=== PATIENT | male | born 1960 | race Caucasian/White ===

== ENCOUNTER 2024-08-24 11:48 | Inpatient (IN) | payer MEDICARE, OTHER ==
--- NOTE | 2024-08-24 12:21 | ED ---
General Adult HPI - General Chief complaint: Altered Mental Status Stated complaint: AMS Time Seen by Provider: 08/24/24 11:59 Source: patient, EMS, RN notes reviewed Mode of arrival: EMS Limitations: altered mental status - History of Present Illness Initial comments: Patient is a 64-year-old male presenting to the emergency department with concerns with speech problems. Onset of symptoms was unclear. Patient believes that is from starting new medication. Patient reportedly started Xanax a couple of days ago. Patient admits to having left arm weakness however states that is chronic. Patient is unclear if he has left leg weakness EMS reports that is chronic. Patient denies feeling confused and does not feel he has any new weakness. - Related Data Home Medications Medication Instructions Recorded Confirmed Acetaminophen Tab [Tylenol] 650 mg PO Q4H PRN MDD 3 GRAMS 08/24/24 08/24/24 Atorvastatin [Lipitor] 80 mg PO HS@1900 08/24/24 08/24/24 Baclofen [Lioresal] 10 mg PO TID@0700,1400,1900 08/24/24 08/24/24 Bismuth Subsalicylate 524 mg PO Q30M PRN MDD 240ML 08/24/24 08/24/24 [Pepto-Bismol] Docusate [Colace] 100 mg PO DAILY PRN 08/24/24 08/24/24 Gabapentin [Neurontin] 100 mg PO TID@0700,1400,1900 08/24/24 08/24/24 HYDROcodone/APAP 5-325MG [[place] 1 tab PO Q6HR PRN 08/24/24 08/24/24 5-325] LORazepam [Ativan] 1 mg PO TID PRN 08/24/24 08/24/24 Magnesium Hydroxide [Milk of 2,400 mg PO DAILY PRN 08/24/24 08/24/24 Magnesia] Maxtussin 200mg/10ml 200 mg PO BID PRN 08/24/24 08/24/24 Omeprazole [PriLOSEC] 20 mg PO AC-SUPPER@1600 08/24/24 08/24/24 Ticagrelor [Brilinta] 90 mg PO BID@0700,1900 08/24/24 08/24/24 Tylenol Cold/Flu Severe 2 cap PO Q4H PRN MDD 10 CAPS 08/24/24 08/24/24 bisacodyL [Dulcolax] 10 mg RECTAL DAILY PRN 08/24/24 08/24/24 cloZAPine [Clozaril] 25 mg PO BID@0700,1600 08/24/24 08/24/24 polyethylene glycoL 3350 [Miralax] 17 gm PO DAILY PRN 08/24/24 08/24/24 traZODone HCL [Desyrel] 50 mg PO HS@1900 08/24/24 08/24/24 Allergies Allergy/AdvReac Type Severity Reaction Status Date / Time No Known Allergies Allergy Verified 08/24/24 13:46 Review of Systems ROS Statement: Those systems with pertinent positive or pertinent negative responses have been documented in the HPI. ROS Other: All systems not noted in ROS Statement are negative. Constitutional: Denies: fever Eyes: Denies: eye pain ENT: Denies: ear pain Respiratory: Denies: cough Cardiovascular: Denies: chest pain Gastrointestinal: Denies: abdominal pain Musculoskeletal: Denies: back pain Neurological: Reports: as per HPI Past Medical History Past Medical History: GERD/Reflux, Hyperlipidemia, Hypertension History of Any Multi-Drug Resistant Organisms: None Reported Past Surgical History: No Surgical Hx Reported Additional Past Surgical History / Comment(s): left shoulder surgery Past Anesthesia/Blood Transfusion Reactions: No Reported Reaction Past Psychological History: No Psychological Hx Reported Past Alcohol Use History: None Reported, Rare Past Drug Use History: None Reported - Past Family History Mother Family Medical History: Cancer Additional Family Medical History / Comment(s): unknown type of cancer Father Family Medical History: COPD General Exam Limitations: no limitations, altered mental status General appearance: alert, in no apparent distress Head exam: Present: normocephalic Eye exam: Present: normal appearance, PERRL, EOMI Neck exam: Present: normal inspection Respiratory exam: Present: normal lung sounds bilaterally Cardiovascular Exam: Present: regular rate, normal rhythm GI/Abdominal exam: Present: soft. Absent: tenderness Extremities exam: Present: normal inspection Neurological exam: Present: alert, oriented X3, CN II-XII intact Expanded Neurological exam: Present: protecting the airway Patient oriented to: Present: person, place, time Speech: Present: fluid speech Cranial nerves: EOM's Intact: Normal Motor strength exam: RUE: 5, LUE: 2/1, RLE: 5, LLE: 3 Eye Response: (4) open spontaneously Motor Response: (6) obeys commands Verbal Response: (5) oriented Psychiatric exam: Present: normal affect, normal mood Skin exam: Present: normal color Course Vital Signs 08/24/24 08/24/24 11:52 14:14 Temperature 98 F Pulse Rate 103 H 94 Respiratory 18 18 Rate Blood Pressure 124/81 119/84 O2 Sat by Pulse 94 L 93 L Oximetry EKG Findings - EKG Results: EKG: interpreted by WENCESLAO (Left axis.), sinus rhythm, normal QRS, normal ST/T Medical Decision Making - Medical Decision Making [facility] states patient had a stroke a few months ago. They state over the past month patient has been more confused and more anxious. Patient has had some difficulty walking over the past couple of days. Weakness left-sided is reported as chronic. Was pt. sent in by a medical professional or institution (, PA, [employer], urgent care, hospital, or long-term...) When possible be specific @ -Patient was sent from group Did you speak to anyone other than the patient for history (EMS, parent, family, police, friend...)? What history was obtained from this source @ -Patient family arrives later and provides additional history that they do have concerns with some hallucinations and increased slurred speech. Did you review nursing and triage notes (agree or disagree)? Why? @ -I reviewed and agree with nursing and triage notes Were old charts reviewed (outside hosp., previous admission, EMS record, old EKG, old radiological studies, urgent care reports/EKG's, long-term records)? Report findings @ -No old charts were reviewed Differential Diagnosis (chest pain, altered mental status, abdominal pain women, abdominal pain men, vaginal bleeding, weakness, fever, dyspnea, syncope, headache, dizziness, GI bleed, back pain, seizure, CVA, palpatations, mental health, musculoskeletal)? @ -Differential Weakness: Hypoglycemia, shock, sepsis, hyponatremia, anemia, infection, [place], ETOH, adverse medicine reaction, overdose, stroke, this is not meant to be an all-inclusive list. EKG interpreted by me (3pts min.). @ -As above X-rays interpreted by me (1pt min.). @ -Chest x-ray shows nonspecific finding CT interpreted by me (1pt min.). @ -CT brain shows old stroke. No acute process U/S interpreted by me (1pt. min.). @ -None done What testing was considered but not performed or refused? (CT, X-rays, U/S, labs)? Why? @ -None What meds were considered but not given or refused? Why? @ -None Did you discuss the management of the patient with other professionals (professionals i.e. DrJohn, PA, [facility] [employer] [facility], lab, RT, psych nurse, social insurance adviser, gas plant repairer, teacher, evp chief exploration officer, case folder)? Give summary @ -Case was discussed with Dr. Pendleton will admit covering Dr. Lipscomb Was smoking cessation discussed for >3mins.? @ -No Was critical care preformed (if so, how long)? @ -No Were there social determinants of health that impacted care today? How? (Homelessness, low income, unemployed, alcoholism, drug addiction, transportation, low edu. Level, literacy, decrease access to med. care, snf, r ehab)? @ -No Was there de-escalation of care discussed even if they declined (Discuss DNR or withdrawal of care, Hospice)? DNR status @ -No What co-morbidities impacted this encounter? (DM, HTN, Smoking, COPD, CAD, Cancer, CVA, ARF, Chemo, Hep., AIDS, mental health diagnosis, sleep apnea, morbid obesity)? @ -History of stroke Was patient admitted / discharged? Hospital course, mention meds given and route, prescriptions, significant lab abnormalities, going to OR and other pertinent info. @ -Patient presents with new onset slurred speech and some hallucinations. There does not to be apparent new weakness. It is unclear if this could be related to TIA/CVA or medication. Patient will be admitted with neurology consult. Admission orders written Undiagnosed new problem with uncertain prognosis? @ -No Drug Therapy requiring intensive monitoring for toxicity (Heparin, Nitro, Insulin, Cardizem)? @ -No Were any procedures done? @ -No Diagnosis/symptom? @ -Slurred speech Acute, or Chronic, or Acute on Chronic? @ -Acute Uncomplicated (without systemic symptoms) or Complicated (systemic symptoms)? @ -Default Side effects of treatment? @ -No Exacerbation, Progression, or Severe Exacerbation? @ -No Poses a threat to life or bodily function? How? (Chest pain, [place], [place], pneumonia, PE, COPD, DKA, ARF, appy, cholecystitis, CVA, Diverticulitis, Homicidal, Suicidal, threat to staff... and all critical care pts) @ -Threat to neurological from - Lab Data Result diagrams: 08/24/24 12:00 08/24/24 12:00 Lab Results 08/24/24 08/24/24 08/24/24 Range/Units 12:00 12:00 12:00 WBC 6.9 (3.8-10.6) k/uL RBC 5.52 (4.30-5.90) m/uL Hgb 15.9 (13.0-17.5) gm/dL Hct 49.1 (39.0-53.0) % MCV 89.0 (80.0-100.0) fL MCH 28.7 (25.0-35.0) pg MCHC 32.3 (31.0-37.0) g/dL RDW 13.9 (11.5-15.5) % Plt Count 269 (150-450) k/uL MPV 7.2 Neutrophils % 49 % Lymphocytes % 39 % Monocytes % 7 % Eosinophils % 3 % Basophils % 1 % Neutrophils # 3.4 (1.3-7.7) k/uL Lymphocytes # 2.7 (1.0-4.8) k/uL Monocytes # 0.5 (0-1.0) k/uL Eosinophils # 0.2 (0-0.7) k/uL Basophils # 0.0 (0-0.2) k/uL PT 11.1 (10.0-12.5) sec INR 1.0 (<1.2) APTT 25.1 (22.0-30.0) sec Sodium 141 (137-145) mmol/L Potassium 3.5 (3.5-5.1) mmol/L Chloride 101 (98-107) mmol/L Carbon Dioxide 28 (22-30) mmol/L Anion Gap 12 mmol/L BUN 12 (9-20) mg/dL Creatinine 0.76 (0.66-1.25) mg/dL Est GFR (CKD-EPI)AfAm >90 (>60 ml/min/1.73 sqM) Est GFR (CKD-EPI)NonAf >90 (>60 ml/min/1.73 sqM) Glucose 116 H (74-99) mg/dL Plasma Lactic Acid Juan (0.7-2.0) mmol/L Calcium 10.4 H (8.4-10.2) mg/dL Magnesium 1.9 (1.6-2.3) mg/dL Total Bilirubin 0.8 (0.2-1.3) mg/dL AST 24 (17-59) U/L ALT 29 (4-49) U/L Alkaline Phosphatase 69 (38-126) U/L Total Protein 8.0 (6.3-8.2) g/dL Albumin 4.6 (3.5-5.0) g/dL 08/24/24 Range/Units 12:00 WBC (3.8-10.6) k/uL RBC (4.30-5.90) m/uL Hgb (13.0-17.5) gm/dL Hct (39.0-53.0) % MCV (80.0-100.0) fL MCH (25.0-35.0) pg MCHC (31.0-37.0) g/dL RDW (11.5-15.5) % Plt Count (150-450) k/uL MPV Neutrophils % % Lymphocytes % % Monocytes % % Eosinophils % % Basophils % % Neutrophils # (1.3-7.7) k/uL Lymphocytes # (1.0-4.8) k/uL Monocytes # (0-1.0) k/uL Eosinophils # (0-0.7) k/uL Basophils # (0-0.2) k/uL PT (10.0-12.5) sec INR (<1.2) APTT (22.0-30.0) sec Sodium (137-145) mmol/L Potassium (3.5-5.1) mmol/L Chloride (98-107) mmol/L Carbon Dioxide (22-30) mmol/L Anion Gap mmol/L BUN (9-20) mg/dL Creatinine (0.66-1.25) mg/dL Est GFR (CKD-EPI)AfAm (>60 ml/min/1.73 sqM) Est GFR (CKD-EPI)NonAf (>60 ml/min/1.73 sqM) Glucose (74-99) mg/dL Plasma Lactic Acid Juan 1.6 (0.7-2.0) mmol/L Calcium (8.4-10.2) mg/dL Magnesium (1.6-2.3) mg/dL Total Bilirubin (0.2-1.3) mg/dL AST (17-59) U/L ALT (4-49) U/L Alkaline Phosphatase (38-126) U/L Total Protein (6.3-8.2) g/dL Albumin (3.5-5.0) g/dL Disposition Clinical Impression: Slurred speech Disposition: ADMITTED IP TO THIS HOSP Is patient prescribed a controlled substance at d/c from ED?: No Referrals: Holger Lipscomb MD [Primary Care Provider] - 1-2 days Time of Disposition: 15:36
[2024-08-24 12:26] LABS: Basophils % (A) 1 %; Eosinophils # (A) 0.2 k/uL (0-0.7); Eosinophils % (A) 3 %; HCT 49.1 % (39.0-53.0); HGB 15.9 gm/dL (13.0-17.5); Lymphocytes # (A) 2.7 k/uL (1.0-4.8); Lymphocytes % (A) 39 %; MCH 28.7 pg (25.0-35.0); MCHC 32.3 g/dL (31.0-37.0); Mean Platelet Volume 7.2; Monocytes # (A) 0.5 k/uL (0-1.0); Monocytes % (A) 7 %; Neutrophils # (A) 3.4 k/uL (1.3-7.7); Neutrophils % (A) 49 %; Platelet Count 269 k/uL (150-450); RBC 5.52 m/uL (4.30-5.90); RDW 13.9 % (11.5-15.5); WBC 6.9 k/uL (3.8-10.6)
[2024-08-24 12:38] LABS: ALT 29 U/L (4-49); AST 24 U/L (17-59); African American GFR (CKD) >90 (>60 ml/min/1.73 sqM); Albumin 4.6 g/dL (3.5-5.0); Alkaline Phosphatase 69 U/L (38-126); Anion Gap 12 mmol/L; Blood Urea Nitrogen 12 mg/dL (9-20); Calcium 10.4 mg/dL (8.4-10.2); Carbon Dioxide 28 mmol/L (22-30); Chloride 101 mmol/L (98-107); Glucose 116 mg/dL (74-99); Magnesium 1.9 mg/dL (1.6-2.3); Non-African American GFR(CKD) >90 (>60 ml/min/1.73 sqM); Potassium 3.5 mmol/L (3.5-5.1); Sodium 141 mmol/L (137-145); Total Bilirubin 0.8 mg/dL (0.2-1.3)
[2024-08-24 12:42] LABS: Partial Thromboplastin Time 25.1 sec (22.0-30.0); Prothrombin Time 11.1 sec (10.0-12.5)
--- NOTE | 2024-08-24 13:21 | CT ---
EXAMINATION TYPE: CT brain wo con CT DLP: 1192.4 mGycm, Automated exposure control for dose reduction was used. DATE OF EXAM: 08/24/2024 1:13 PM COMPARISON: CT brain 03/30/2016 CLINICAL INDICATION:Male, 64 years old with history of slurred speech, AMS HX OF STROKE TECHNIQUE: Brain: Multiple axial CT images of the brain were obtained without IV contrast. . Coronal and sagitta l reformats reviewed. FINDINGS: Brain: Extra-axial spaces: No abnormal extra-axial fluid collections. Ventricular system: Ex vacuo dilatation of the anterior horn of the left lateral ventricle and zoology technical officer ior and temporal horns of the right lateral ventricle due to adjacent encephalomalacia. Cerebral parenchyma: Cerebral atrophy. No acute intraparenchymal hemorrhage or mass effect. Encephalo malacia involving the right parietal, temporal, and occipital lobes. Remote lacunar infarct within th e left basal ganglia. The cervantes-white junction is well differentiated. Cerebellum: Unremarkable. Mass effect: No evidence of midline shift. Intracranial vasculature: unremarkable Soft tissues: Normal. Calvarium/osseous structures: No depressed skull fracture. Paranasal sinuses and mastoid air cells: Mastoid air cells are clear. Right sphenoid sinus is clear. The visualized right maxillary sinus is clear. Mild mucosal thickening of the inferior partially visu alized left maxillary sinus. Both frontal sinuses are clear. Complete opacification of the left sphen oid sinus. Mild mucosal thickening the bilateral ethmoid sinuses. Visualized orbits: Orbital contents are intact. IMPRESSION: 1. No acute intracranial process. 2. Encephalomalacia involving the right parietal, temporal, and occipital lobes from prior insult. Re mote lacunar infarct within the left basal ganglia. 3. Nonspecific white matter changes, likely secondary to chronic small vessel ischemic disease. 4. Paranasal sinus disease. [facility], , 08/24/2024 1:19 PM
--- NOTE | 2024-08-24 13:56 | XR ---
EXAMINATION TYPE: XR chest 2V DATE OF EXAM: 08/24/2024 1:20 PM CLINICAL INDICATION: Male, 64 years old with history of Weakness; [facility] COMPARISON: None TECHNIQUE: XR chest 2V Frontal view of the chest. FINDINGS: Lungs/Pleura: There is no evidence of pleural effusion, focal consolidation, or pneumothorax. Pulmonary vascularity: Unremarkable. Heart/mediastinum: Cardiomediastinal silhouette is unremarkable. Musculoskeletal: No acute osseous pathology. IMPRESSION: No acute cardiopulmonary disease/process. [facility], , 08/24/2024 1:54 PM
[2024-08-24] MEDS ORDERED: MAGNESIUM HYDROXIDE 2,400 MG/30 ML CUP PO PRN (15:39)
[2024-08-24] MEDS ORDERED: guaiFENesin SYRUP 100MG/5ML 200 MG/10 ML CUP PO PRN (15:39)
[2024-08-24] MEDS ORDERED: polyethylene glycoL 3350 17 GM POWD.PACK PO PRN (15:39)
[2024-08-24] MEDS ORDERED: bisacodyL 10 MG SUPP RECTAL PRN (15:39)
[2024-08-24] MEDS ORDERED: DOCUSATE 100 MG CAP PO PRN (15:39)
[2024-08-24] MEDS ORDERED: ACETAMINOPHEN TAB 325 MG TAB PO PRN (15:39)
[2024-08-24] MEDS ORDERED: BISMUTH SUBSALICYLATE 4,192 MG/240 ML BOTTLE PO PRN (15:39)
--- NOTE | 2024-08-24 16:45 | US ---
EXAMINATION TYPE: US carotid duplex BILAT DATE OF EXAM: 08/24/2024 COMPARISON: NONE CLINICAL INDICATION: Male, 64 years old with history of Stenosis; Stenosis per order. Patient is poor historian. Per patient's daughter- pt had stroke in February 2024. TECHNIQUE: Grayscale, color Doppler and spectral Doppler evaluation of the bilateral carotid systems and vertebral arteries.Indirect Doppler criteria was utilized. FINDINGS: EXAM MEASUREMENTS: RIGHT: Peak Systolic Velocity (PSV) cm/sec ----- Right CCA: 66.9 ----- Right ICA: Unable to show color flow after the bulb ----- Right ECA: 110.4 ICA/CCA ratio: color flow not seen in ICA after the bulb RIGHT: End Diastole cm/sec ----- Right CCA: 14.2 ----- Right ICA: Unable to show color flow ----- Right ECA: 15.9 LEFT: Peak Systolic Velocity (PSV) cm/sec ----- Left CCA: 84.2 ----- Left ICA: 114.7 ----- Left ECA: 93.1 ICA/CCA ratio: 1.4 LEFT: End Diastole cm/sec ----- Left CCA: 18.2 ----- Left ICA: 21.5 ----- Left ECA: 12.8 VERTEBRALS (direction of flow): Right Vertebral: Antegrade Left Vertebral: Antegrade Rhythm: Normal OPEN HEARTH WORKER NOTES: Unable to show color flow within the right ICA. Poor history from patient. No elevated velocities. Plaque seen within left bulb. Intimal thickening is present. IMPRESSION: 1. No flow identified within the right internal carotid artery. Obstruction and critical stenosis wit hin the differential. Criteria for Assigning % of Stenosis / Diameter reduction (Estimation based on the indirect measurements of the internal carotid artery velocities (ICA PSV). 1. Normal (no stenosis)=ICA PSV < 125 cm/s: ratio < 2.0: ICA EDV<40 cm/s. 2. Less than 50% stenosis=ICA PSV < 125 cm/s: ratio < 2.0: ICA EDV<40 cm/s. 3. 50 to 69% stenosis=ICA PSV of 125 to 230 cm/s: ration 2.0 ? 4.0: ICA EDV 40-100 cm/s. 4. Greater than 70% stenosis to near occlusion= ICA PSV > 230 cm/s: ratio > 4.0: ICA EDV > 100 cm/s. 5. Near occlusion= ICA PSV velocities may be low or undetectable: variable ratio and ICA EDV. 6. Total occlusion=unable to detect flow. [facility], Workstation: [facility], 08/24/2024 4:43 PM
[2024-08-24] MEDS: ASPIRIN 325 MG TAB PO STA (18:51)
[2024-08-24] MEDS: BACLOFEN 10 MG TAB PO SCH (18:52)
[2024-08-24] MEDS: TICAGRELOR 90 MG TAB PO SCH (18:52)
[2024-08-24] MEDS: GABAPENTIN 100 MG CAP PO SCH (18:52)
[2024-08-24] MEDS: traZODone HCL 50 MG TAB PO SCH (18:52)
[2024-08-24] MEDS: ATORVASTATIN 80 MG TAB PO SCH (18:52)
[2024-08-24] MEDS: PANTOPRAZOLE 40 MG TABLET PO SCH (18:52)
[2024-08-24] MEDS: SODIUM CHLORIDE 0.9% 1,000 ML IV SCH (18:53)
[2024-08-24] MEDS: ASPIRIN 300 MG SUPP RECTAL STA (20:06)
--- NOTE | 2024-08-24 20:32 | P.HPIM ---
History of Present Illness H&P Date: 08/24/24 Chief Complaint: Altered mentation Patient was seen in the ER. This is a 64-year-old patient follows with visiting physician Dr. Stringer. History is obtained by the daughter at the bedside. Patient had February of this year had a stroke. Was admitted to an outside hospital for about 3 weeks. Patient is putting much on the left side including arm and leg has minimal m ovement. Patient is able to feed himself. Able to communicate. Patient also has a baseline some nasolabial flattening on the left side of the face. Patient is a resident of [facility]. Patient is able to stand and needs private. At baseline. Patient not able to sleep properly hence was is given Seroquel. That was discontinued 2 days ago. Patient was put on Xanax. Patient was noticed to have altered mentation. Was mumbling his words. But patient is able to answer simple question the ER when I saw him. According to the daughter patient had looks like improved to his baseline. No other neurological deficit was seen or reported by the daughter. Review of systems: GEN.: None EYES: None HEENT: None NECK: None RESPIRATORY: None CARDIOVASCULAR: None GASTROINTESTINAL: None GENITOURINARY: None MUSCULOSKELETAL: None LYMPHATICS: None HEMATOLOGICAL: None PSYCHIATRY: Patient is able to answer simple questions NEUROLOGICAL: Chronic left-sided weakness and left-sided facial nasolabial fold flattening Physical examination: VITAL SIGNS: 98, 97, 18, 127 x 89, 91% room air GENERAL: BMI 26.4, reclining bed awake a bit tired appearing. EYES: Pupils equal. Conjunctiva irene l. HEENT: External appearance of nose and ears normal, oral cavity grossly normal. NECK: JVD not raised; masses not palpable. HEART: First and second heart sounds are normal; no edema. LUNGS: Respiratory rate normal; clear to auscultation. ABDOMEN: Soft, nontender, liver spleen not palpable, no masses palpable. PSYCH: Patient can answer some simple questions. Not able to tell the year or exactly where he is right now. l. MUSCULOSKELETAL:No Clubbing/cyanosis;muscles-grossly intact NEUROLOGICAL: Speech is a bit slow. Reported by daughter to be his baseline. Some flattening of the left nasolabial fold. Left side power 4/5 LYMPHATICS: No lymph nodes palpable in the axilla and neck] INVESTIGATIONS, reviewed in the clinical context: August 24, 2024: White count 6.9 hemoglobin 15.9 platelets 269 sodium 141 potassium 3.5 creatinine 0.76 EKG tracing personally reviewed by me-normal sinus rhythm. CT scans of brain: Encephalomalacia involving the right parietal temporal occipital lobes from prior insult. Remote lacunar infarct in the left basal ganglia. White matter changes. Chest x-ray film personally reviewed by me-cardiomegaly. Carotid Doppler no flow identified within the right internal ArteryShows Assessment plan: -Altered mentation. Could be metabolic encephalopathy could be from Xanax. Stroke in the brainstem affecting the RAAS system could cause this. Initial CT scan unremarkable. But in the ER as per the daughter patient is quite back to his baseline. Will order MRI of the brain to rule out stroke. Neurology consulted. Neurochecks. Given significant previous stroke. 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 At baseline patient is able to stand and can pivot with help. -Hyperlipidemia Lipitor 80 mg nightly -GERD Prilosec -Chronic constipation Laxatives -Chronic medical debility secondary to prior stroke Baseline only able to stand and pivot with help. -Cognitive impairment due to underlying stroke -Full code -Public guardian: Jacey Ansonbin. [facility] Past Medical History Past Medical History: GERD/Reflux, Hyperlipidemia, Hypertension History of Any Multi-Drug Resistant Organisms: None Reported Past Surgical History: No Surgical Hx Reported Additional Past Surgical History / Comment(s): left shoulder surgery Past Anesthesia/Blood Transfusion Reactions: No Reported Reaction Past Psychological History: No Psychological Hx Reported Past Alcohol Use History: None Reported, Rare Past Drug Use History: None Reported - Past Family History Mother Family Medical History: Cancer Additional Family Medical History / Comment(s): unknown type of cancer Father Family Medical History: COPD Medications and Allergies Home Medications Medication Instructions Recorded Confirmed Type Acetaminophen Tab [Tylenol] 650 mg PO Q4H PRN MDD 3 GRAMS 08/24/24 08/24/24 History Atorvastatin [Lipitor] 80 mg PO HS@1900 08/24/24 08/24/24 History Baclofen [Lioresal] 10 mg PO TID@0700,1400,1900 08/24/24 08/24/24 History Bismuth Subsalicylate 524 mg PO Q30M PRN MDD 240ML 08/24/24 08/24/24 History [Pepto-Bismol] Docusate [Colace] 100 mg PO DAILY PRN 08/24/24 08/24/24 History Gabapentin [Neurontin] 100 mg PO TID@0700,1400,1900 08/24/24 08/24/24 History HYDROcodone/APAP 5-325MG [[place] 1 tab PO Q6HR PRN 08/24/24 08/24/24 History 5-325] LORazepam [Ativan] 1 mg PO TID PRN 08/24/24 08/24/24 History Magnesium Hydroxide [Milk of 2,400 mg PO DAILY PRN 08/24/24 08/24/24 History Magnesia] Maxtussin 200mg/10ml 200 mg PO BID PRN 08/24/24 08/24/24 History Omeprazole [PriLOSEC] 20 mg PO AC-SUPPER@1600 08/24/24 08/24/24 History Ticagrelor [Brilinta] 90 mg PO BID@0700,1900 08/24/24 08/24/24 History Tylenol Cold/Flu Severe 2 cap PO Q4H PRN MDD 10 CAPS 08/24/24 08/24/24 History bisacodyL [Dulcolax] 10 mg RECTAL DAILY PRN 08/24/24 08/24/24 History cloZAPine [Clozaril] 25 mg PO BID@0700,1600 08/24/24 08/24/24 History polyethylene glycoL 3350 [Miralax] 17 gm PO DAILY PRN 08/24/24 08/24/24 History traZODone HCL [Desyrel] 50 mg PO HS@1900 08/24/24 08/24/24 History Allergies Allergy/AdvReac Type Severity Reaction Status Date / Time No Known Allergies Allergy Verified 08/24/24 13:46 Physical Exam Vitals: Vital Signs Temp Pulse Resp BP Pulse Ox 08/24/24 16:19 97 18 127/89 91 L 08/24/24 14:14 94 18 119/84 93 L 08/24/24 11:52 98 F 103 H 18 124/81 94 L Intake and Output 08/24/24 08/24/2408/24/24 06:59 14:59 22:59 Other: Weight 90.718 kg Results CBC & Chem 7: 08/24/24 12:00 08/24/24 12:00 Labs: Abnormal Lab Results - Last 24 Hours (Table) 08/24/24 Range/Units 12:00 Glucose 116 H (74-99) mg/dL Calcium 10.4 H (8.4-10.2) mg/dL
--- NOTE | 2024-08-24 22:17 | CT ---
EXAMINATION TYPE: CT angio head neck DATE OF EXAM: 08/24/2024 HISTORY: CAROTID STENOSIS COMPARISON: None CT DLP: 499.9 mGycm. Automated Exposure Control for Dose Reduction was Utilized. TECHNIQUE: CTA scan of the neck is performed with IV Contrast, patient injected with 65ml mL of Isov ue 370, axial images are obtained, coronal and sagittal reformatted images are reviewed. Three-D eliezer nstructed images are created on an independent workstation and reviewed. Source images are reviewed. FINDINGS: Carotid/Vascular Structures: There is a 4 vessel arch. Common carotid arteries bifurcate into internal and external carotid arteries without significant jason w limiting stenosis. Vertebral arteries are codominant. Vertebral arteries and left internal carotid artery are patent to the skull base. The right internal carotid artery may be occluded in its proximal portion. Small thread may extend towards the skull bas e. Right Foramen lacerum appears empty. Small amount of retrograde flow may be in the distal internal carotid artery. Cervical of [place]: Vertebral basilar system appears normal. Posterior cerebral vasculature is unrema rkable. Left Internal carotid artery bifurcates normally into A1 and M1 segments. A2 segments are normal. Clinical Engineering Manager ssover flow to the right A1 and M1 segment is evident. This contrast extends to a large right middle cerebral artery infarct region. The anterior communicating artery is patent. The right posterior communicating artery is absent. The left posterior communicating artery is absent. Other: Large right middle cerebral artery distribution infarct is evident. IMPRESSION: 1. Occlusion of the proximal right internal carotid artery. 2. Crossover flow from left to right A1 and M1 segments. NASCET criteria was used in interpretation of this exam? [facility], Workstation: [facility], 08/24/2024 10:15 PM
[2024-08-25] MEDS: ASPIRIN 81 MG PO SCH (08:30)
--- NOTE | 2024-08-25 10:52 | P.GSCN ---
History of Present Illness Consult date: 08/25/24 Reason for Consult: Right carotid occlusion Requesting physician: Jaime Pendleton History of present illness: This a pleasant 64-year-old male who was brought in by EMS yesterday for concerns for slurred speech and difficulty speaking. Patient has a recent history of stroke with residual left-sided weakness and cognitive dysfunction. States he was at [facility] and sent to [facility] for care at that time. Patient has a public guardian. States he had a stroke a few months back and he is supposed to be following with for physicians however he could not elaborate. He does report that he had right ICA occlusion. He was currently on Lipitor 80 mg daily as well as Brilinta 90 mg twice daily. Does not appear to be on aspirin. Patient has's poor historian. His thoughts seem to be on organized. Often talking about his son and daughter, and stating somebody had come to his house and made him take a test at 3 AM. Speech is fluent does seem to be able to answer questions appropriately. Is alert and oriented to self and place initially stated the year as 2023 but then asked if it was 1993. Patient is currently being evaluated for possible stroke versus metabolic encephalopathy. Apparently patient had been started on Seroquel and Xanax for difficulty sleeping at his group residence. Patient believes speech may have been secondary to the medications. He had a carotid duplex and CTA head and neck that reported right ICA occlusion and vascular surgery was consulted for the above. Review of Systems A 14 point review systems was completed all pertinent positives and negatives as stated in the HPI. Past Medical History Past Medical History: GERD/Reflux, Hyperlipidemia, Hypertension History of Any Multi-Drug Resistant Organisms: None Reported Past Surgical History: No Surgical Hx Reported Additional Past Surgical History / Comment(s): left shoulder surgery Past Anesthesia/Blood Transfusion Reactions: No Reported Reaction Past Psychological History: No Psychological Hx Reported Past Alcohol Use History: None Reported, Rare Past Drug Use History: None Reported - Past Family History Mother Family Medical History: Cancer Additional Family Medical History / Comment(s): unknown type of cancer Father Family Medical History: COPD Medications and Allergies Home Medications Medication Instructions Recorded Confirmed Type Acetaminophen Tab [Tylenol] 650 mg PO Q4H PRN MDD 3 GRAMS 08/24/24 08/24/24 History Atorvastatin [Lipitor] 80 mg PO HS@1900 08/24/24 08/24/24 History Baclofen [Lioresal] 10 mg PO TID@0700,1400,1900 08/24/24 08/24/24 History Bismuth Subsalicylate 524 mg PO Q30M PRN MDD 240ML 08/24/24 08/24/24 History [Pepto-Bismol] Docusate [Colace] 100 mg PO DAILY PRN 08/24/24 08/24/24 History Gabapentin [Neurontin] 100 mg PO TID@0700,1400,1900 08/24/24 08/24/24 History HYDROcodone/APAP 5-325MG [Dunlap 1 tab PO Q6HR PRN 08/24/24 08/24/24 History 5-325] LORazepam [Ativan] 1 mg PO TID PRN 08/24/24 08/24/24 History Magnesium Hydroxide [Milk of 2,400 mg PO DAILY PRN 08/24/24 08/24/24 History Magnesia] Maxtussin 200mg/10ml 200 mg PO BID PRN 08/24/24 08/24/24 History Omeprazole [PriLOSEC] 20 mg PO AC-SUPPER@1600 08/24/24 08/24/24 History Ticagrelor [Brilinta] 90 mg PO BID@0700,1900 08/24/24 08/24/24 History Tylenol Cold/Flu Severe 2 cap PO Q4H PRN MDD 10 CAPS 08/24/24 08/24/24 History bisacodyL [Dulcolax] 10 mg RECTAL DAILY PRN 08/24/24 08/24/24 History cloZAPine [Clozaril] 25 mg PO BID@0700,1600 08/24/24 08/24/24 History polyethylene glycoL 3350 [Miralax] 17 gm PO DAILY PRN 08/24/24 08/24/24 History traZODone HCL [Desyrel] 50 mg PO HS@1900 08/24/24 08/24/24 History Allergies Allergy/AdvReac Type Severity Reaction Status Date / Time No Known Allergies Allergy Verified 08/24/24 13:46 Surgical - Exam Vital Signs Temp Pulse Resp BP Pulse Ox 98 F 103 H 18 124/81 94 L 08/24/24 11:52 08/24/24 11:52 08/24/24 11:52 08/24/24 11:52 08/24/24 11:52 General appearance: The patient is alert, oriented, appears in no acute distress. HET: Head is normocephalic and atraumatic. Pupils are equal and reactive. Neck: Supple. No audible carotid bruit. Heart: Regular. Lungs: Equal expansion, normal respiratory effort. Abdomen: Soft, nontender, nondistended. Extremities: Normal skin color and turgor. Palpable radial and DP pulses. Neurological: Patient's speech is fluent. Answers questions appropriately, however goes off on tangent thoughts. Left upper and lower extremity weakness. Results - Labs 08/24/24 12:00 08/24/24 12:00 Abnormal Lab Results - Last 24 Hours (Table) 08/24/24 Range/Units 12:00 Glucose 116 H (74-99) mg/dL Calcium 10.4 H (8.4-10.2) mg/dL Diabetes panel 08/24/24 Range/Units 12:00 Sodium 141 (137-145) mmol/L Potassium 3.5 (3.5-5.1) mmol/L Chloride 101 (98-107) mmol/L Carbon Dioxide 28 (22-30) mmol/L BUN 12 (9-20) mg/dL Creatinine 0.76 (0.66-1.25) mg/dL Glucose 116 H (74-99) mg/dL Calcium 10.4 H (8.4-10.2) mg/dL AST 24 (17-59) U/L ALT 29 (4-49) U/L Alkaline Phosphatase 69 (38-126) U/L Total Protein 8.0 (6.3-8.2) g/dL Albumin 4.6 (3.5-5.0) g/dL Calcium panel 08/24/24 Range/Units 12:00 Calcium 10.4 H (8.4-10.2) mg/dL Albumin 4.6 (3.5-5.0) g/dL Pituitary panel 08/24/24 Range/Units 12:00 Sodium 141 (137-145) mmol/L Potassium 3.5 (3.5-5.1) mmol/L Chloride 101 (98-107) mmol/L Carbon Dioxide 28 (22-30) mmol/L BUN 12 (9-20) mg/dL Creatinine 0.76 (0.66-1.25) mg/dL Glucose 116 H (74-99) mg/dL Calcium 10.4 H (8.4-10.2) mg/dL Adrenal panel 08/24/24 Range/Units 12:00 Sodium 141 (137-145) mmol/L Potassium 3.5 (3.5-5.1) mmol/L Chloride 101 (98-107) mmol/L Carbon Dioxide 28 (22-30) mmol/L BUN 12 (9-20) mg/dL Creatinine 0.76 (0.66-1.25) mg/dL Glucose 116 H (74-99) mg/dL Calcium 10.4 H (8.4-10.2) mg/dL Total Bilirubin 0.8 (0.2-1.3) mg/dL AST 24 (17-59) U/L ALT 29 (4-49) U/L Alkaline Phosphatase 69 (38-126) U/L Total Protein 8.0 (6.3-8.2) g/dL Albumin 4.6 (3.5-5.0) g/dL - Imaging Comments: Brain CT: No acute intracranial process. Encephalomalacia involving the right parietal, temporal and occipital lobes from prior insult. Remote lacunar infarct within the left basal ganglia. Nonspecific white matter changes, likely secondary to chronic small vessel ischemic disease, paraNasal sinus disease. Carotid ultrasound reports no flow identified within the right internal carotid artery. Obstruction and critical stenosis within the differential. CT angiogram head and neck reports occlusion of the proximal right internal carotid artery. Crossover flow from left to right A1 and M1 segments. Assessment and Plan Assessment: 1. Right internal carotid artery occlusion 2. Altered mental status changes 3. History of recent stroke with residual left-sided weakness Plan: There is no indication for any vascular surgical intervention for right ICA occlusion. Continue with medical therapy with Lipitor and Brilinta as ordered. MRI currently pending. Continue with further recommendations and workup from neurology. Thank you for this consultation. Patient can certainly follow up with vascular surgery for continued surveillance of left ICA although there is less than 50% noted. Or may continue with follow-up with consultants from previous hospitalization in [place]. The impression and plan of care has been dictated as directed. I performed a history and examination of this patient, discussed the same with the dictator. I agree with the dictator's note ,documented as a scribe. Any additional findings or plans will be noted.
[2024-08-25 11:18] LABS: Chol/HDL Ratio 3.77 Ratio; LDL Cholesterol,Calculated 39.5 mg/dL (0.0-131.0)
--- NOTE | 2024-08-25 18:09 | P.PN ---
Progress Note - Text Progress Note Date: 08/25/24 Chief Complaint: Altered mentation Patient was seen in the ER. This is a 64-year-old patient follows with visiting physician Dr. Stringer. History is obtained by the daughter at the bedside. Patient had February of this year had a stroke. Was admitted to an outside hospital for about 3 weeks. Patient is putting much on the left side including arm and leg has minimal movement. Patient is able to feed himself. Able to communicate. Patient also has a baseline some nasolabial flattening on the left side of the face. Patient is a resident of [facility]. Patient is able to stand and needs private. At baseline. Patient not able to sleep properly hence was is given Seroquel. That was discontinued 2 days ago. Patient was put on Xanax. Patient was noticed to have altered mentation. Was mumbling his words. But patient is able to answer simple question the ER when I saw him. According to the daughter patient had looks like improved to his baseline. No other neurological deficit was seen or reported by the daughter. August 25: Patient overflowing the ER. Seen by speech therapist. On chopped diet. Edom thick liquids. Assisted feeding. Spoke to the nurse. Patient able to tolerate his diet. CT angio of the neck showed complete occlusion of the right internal carotid artery. No intervention per vascular. Await input from neurology. Patient able to hold a conversation. Note blood pressure was noted to be higher as patient not able to take his medications. Now he can have at that he is tolerating a diet. Active Medications Acetaminophen (Acetaminophen Tab 325 Mg Tab) 650 mg PO Q4H PRN PRN Reason: Pain or Fever > 100.5 Aspirin (Aspirin 81 Mg) 81 mg PO DAILY [facility] Last Admin: 08/25/24 08:30 Dose: Not Given Atorvastatin Calcium (Atorvastatin 80 Mg Tab) 80 mg PO HS@1900 [facility] Last Admin: 08/24/24 18:52 Dose: Not Given Baclofen (Baclofen 10 Mg Tab) 10 mg PO TID@0700,1400,1900 [facility] Last Admin: 08/25/24 13:15 Dose: 10 mg Bisacodyl (Bisacodyl 10 Mg Supp) 10 mg RECTAL DAILY PRN PRN Reason: Constipation Bismuth Subsalicylate (Bismuth Subsalicylate 4,192 Mg/240 Ml Bottle) 524 mg PO Q30M PRN PRN Reason: GI Upset Docusate Sodium (Docusate 100 Mg Cap) 100 mg PO DAILY PRN PRN Reason: Constipation Gabapentin (Gabapentin 100 Mg Cap) 100 mg PO TID@0700,1400,1900 [facility] Last Admin: 08/25/24 13:16 Dose: 100 mg Guaifenesin (Guaifenesin Syrup 100mg/5ml 200 Mg/10 Ml Cup) 200 mg PO BID PRN PRN Reason: Cough Sodium Chloride (Saline 0.9%) 1,000 mls @ 100 mls/hr IV .Q10H [facility] Last Admin: 08/25/24 16:53 Dose: 100 mls/hr Magnesium Hydroxide (Magnesium Hydroxide 2,400 Mg/30 Ml Cup) 2,400 mg PO DAILY PRN PRN Reason: 3 DAYS NO BM Pantoprazole Sodium (Pantoprazole 40 Mg Tablet) 40 mg PO AC-SUPPER@1600 [facility] Last Admin: 08/25/24 15:11 Dose: 40 mg Polyethylene Glycol (Polyethylene Glycol 3350 17 Gm Powd.Pack) 17 gm PO DAILY PRN PRN Reason: Constipation Ticagrelor (Ticagrelor 90 Mg Tab) 90 mg PO BID@0700,1900 [facility] Last Admin: 08/25/24 06:06 Dose: Not Given Trazodone HCl (Trazodone Hcl 50 Mg Tab) 50 mg PO HS@1900 [facility] Last Admin: 08/24/24 18:52 Dose: Not Given Physical examination: VITAL SIGNS: 97.6, 81, 18, 157 by send 95, 94% room air GENERAL: Reclining in bed, comfortable EYES: Pupils equal. Conjunctiva irene l. HEENT: External appearance of nose and ears normal, oral cavity grossly normal. NECK: JVD not raised; masses not palpable. HEART: First and second heart sounds are normal; no edema. LUNGS: Respiratory rate normal; clear to auscultation. ABDOMEN: Soft, nontender, liver spleen not palpable, no masses palpable. PSYCH: Patient can answer some simple questions. Not able to tell the year or exactly where he is right now. l. MUSCULOSKELETAL:No Clubbing/cyanosis;muscles-grossly intact NEUROLOGICAL: Able to hold a simple conversation. . Some flattening of the left nasolabial fold. Left side power 4/5 INVESTIGATIONS, reviewed in the clinical context: August 24, 2024: White count 6.9 hemoglobin 15.9 platelets 269 sodium 141 potassium 3.5 creatinine 0.76 EKG tracing personally reviewed by me-normal sinus rhythm. CT scans of brain: Encephalomalacia involving the right parietal temporal occipital lobes from prior insult. Remote lacunar infarct in the left basal ganglia. White matter changes. Chest x-ray film personally reviewed by me-cardiomegaly. Carotid Doppler no flow identified within the right internal ArteryShows Assessment plan: -Altered mentation. Could be metabolic encephalopathy could be from Xanax. Stroke in the brainstem affecting the KESHAWN system could cause this. Initial CT scan unremarkable. But in the ER as per the daughter patient is quite back to his baseline. Will order MRI of the brain to rule out stroke. Neurology consulted. Neurochecks. Given significant previous stroke. 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 At baseline patient is able to stand and can pivot with help. -Hyperlipidemia Lipitor 80 mg nightly -GERD Prilosec -Chronic constipation Laxatives -Mild dysphagia per speech therapy Chopped diet. Edom thick liquids. [id number]-supervised feeding -Chronic medical debility secondary to prior stroke Baseline only able to stand and pivot with help. -Cognitive impairment due to underlying stroke -Full code -Public guardian: Jacey Rogers. [facility] Past Medical History Past Medical History: GERD/Reflux, Hyperlipidemia, Hypertension History of Any Multi-Drug Resistant Organisms: None Reported Past Surgical History: No Surgical Hx Reported Additional Past Surgical History / Comment(s): left shoulder surgery Past Anesthesia/Blood Transfusion Reactions: No Reported Reaction Past Psychological History: No Psychological Hx Reported Past Alcohol Use History: None Reported, Rare Past Drug Use History: None Reported
[2024-08-25] MEDS: LOSARTAN 50 MG TAB PO SCH (19:03)
--- NOTE | 2024-08-25 21:06 | EEG ---
ELECTROENCEPHALOGRAM REPORT PREAMBLE: This is a 64-year-old male who was brought to the hospital for altered mental status. The patient has a history of stroke in February 2024. CURRENT MEDICATIONS: 1. Lipitor. 2. Lioresal. 3. Dulcolax. 4. Neurontin. 5. Brilinta. 6. Desyrel. EEG FINDINGS: This is a 21-channel digital EEG recorded with video component, utilizing 10/20 international system with referential and bipolar montages. Background consists of well-developed, moderately well regulated, low amplitude activity in 7 hertz theta. Background is posterior dominant and slightly reactive to eye opening and closing. Photic driving response was seen with some flash frequencies. Different stages of sleep were not seen. No focal or generalized epileptiform activity was seen. IMPRESSION: This is an abnormal EEG due to background slowing, suggestive of mild encephalopathy. No focal, lateralized, or epileptiform activity was seen. MMODL / IJN: [id number] /
--- NOTE | 2024-08-26 06:35 | CA ---
Transthoracic Echo Report Name: Rupert Brennan Age: 64 Gender: M : 1960 Exam Date: 08/25/2024 10:04 Exam Location: [place] Echo Ht (in): 73 Wt (lb): 200 Ordering Physician: Nathaniel Reddy DO Attending/Referring Phys: Director Of Partner Marketing Martine Torrez RDCS Procedure CPT: Indications: Thrombus, CVA Cardiac Hx: Technical Quality: Poor Contrast 1: Total Dose (mL): Contrast 2: Total Dose (mL): MEASUREMENTS (Male / Female) Normal Values 2D ECHO LV Diastolic Diameter PLAX 5.5 cm 4.2 - 5.9 / 3.9 - 5.3 cm LV Systolic Diameter PLAX 3.3 cm IVS Diastolic Thickness 0.9 cm 0.6 - 1.0 / 0.6 - 0.9 cm LVPW Diastolic Thickness 1.1 cm 0.6 - 1.0 / 0.6 - 0.9 cm LV Relative Wall Thickness 0.4 RV Internal Dim ED PLAX 1.6 cm LA Systolic Diameter LX 3.9 cm 3.0 - 4.0 / 2.7 - 3.8 cm LV Diastolic Volume MOD BP 71.6 cm??? 67 - 155 / 56 - 104 cm??? LV Systolic Volume MOD BP 30.5 cm??? 22 - 58 / 19 - 49 cm??? LV Ejection Fraction MOD BP 57.4 % >= 55 % LV Cardiac Index MOD BP 1797.2 cm???/min???m??? LV Diastolic Volume MOD 4C 80.4 cm??? LV Systolic Volume MOD 4C 33.0 cm??? LV Ejection Fraction MOD 4C 58.9 % LV Cardiac Index MOD 4C 2070.5 cm???/min???m??? LV Diastolic Length 4C 8.2 cm LV Systolic Length 4C 6.6 cm LV Diastolic Volume MOD 2C 59.0 cm??? LV Systolic Volume MOD 2C 27.4 cm??? LV Ejection Fraction MOD 2C 53.6 % LV Cardiac Index MOD 2C 1381.1 cm???/min???m??? LV Diastolic Length 2C 7.6 cm LV Systolic Length 2C 6.4 cm M-MODE Aortic Root Diameter MM 3.5 cm LA Systolic Diameter MM 2.3 cm LA Ao Ratio MM 0.7 AV Cusp Separation MM 1.8 cm DOPPLER Mitral E Point Velocity 52.6 cm/s Mitral A Point Velocity 90.6 cm/s Mitral E to A Ratio 0.6 MV Deceleration Time 272.7 ms TR Peak Velocity 131.0 cm/s TR Peak Gradient 6.9 mmHg FINDINGS Left Ventricle Left ventricular ejection fraction is estimated at 55-60%. Normal Left ventricular size, wall thickness, systolic function with no obvious regional wall motion abnormalities. Right Ventricle Normal RV size and systolic function Right Atrium Mild right atrial dilatation. Left Atrium mild left atrial dilatation Mitral Valve Structurally normal mitral valve. Trace mitral regurgitation. No mitral stenosis. Aortic Valve Trileaflet aortic valve. No aortic valve stenosis or regurgitation. Tricuspid Valve Structurally normal tricuspid valve. Trace tricuspid regurgitation. No tricuspid stenosis. Pulmonic Valve Structurally normal pulmonic valve. Trace pulmonic regurgitation. Trace pulmonic regurgitation. Pericardium No pericardial or pleural effusion. Aorta Normal size aortic root and proximal ascending aorta. CONCLUSIONS Left ventricular ejection fraction is estimated at 55-60%. No obvious regional wall motion abnormality Normal RV size and systolic function Mild biatrial dilatation No significant valve dysfunction Previewed by: Dr Tony Seay (Electronically Signed) Final Date: 26 August 2024 06:35
--- NOTE | 2024-08-26 10:49 | P.CNNES ---
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 Patient is poor historian, states he came because his head was plugged up. Patient states he had history of stroke in January 2024, which affected his left side for which she was hospitalized for couple months. Patient states he lives by himself although his son used to live with him. Patient states since his stroke, he is living in [place] [address] He could not tell if he has any worsening of symptoms. With history of CVA as per EMS flowsheet, when they arrived, patient was laying supine in the bed. Staff states patient has been having some slurred speech changes since around 10 AM and weakness since Friday. Staff states he normally is a 1 person assist out of bed and has been needing 2 people to get him up for that day. Staff mentioned that patient was recently placed on Klonopin for anxiety. Staff was unsure if that medication is causing the drowsiness and slowed/slurred speech. Staff mentioned that patient is normally confused but is alert and orient x 3. On EMS evaluation, patient was alert and orient x 3, GCS of 14. Pupils were pinpoint. Blood glucose 167. No nausea or vomiting. Denied difficulty urination. Vital signs at the scene was blood pressure 124/79, pulse rate 104, saturation 96%. Blood test shows normal CBC PT PTT. CMP is normal with elevated calcium 10.4. Lipid panel with cholesterol 87, LDL 39, triglycerides 122 and HDL 23. EKG showed sinus rhythm. CT head revealed no acute intracranial process. Encephalomalacia involving the right parietal, temporal and occipital lobes from prior insult. Remote lacunar infarct within the left basal ganglia. Nonspecific white matter changes, likely secondary to chronic small vessel ischemic disease. Paranasal sinus disease. I personally reviewed CT head and agree with the findings. Chest x-ray showed no acute cardiopulmonary process. Home medications include Lipitor 80 mg, Sneads, clozapine 25 mg twice daily, Brilinta 90 mg twice daily, trazodone, omeprazole, gabapentin. Patient has smoked half pack per day for 12 to 15 years, quit 7 years ago. He has not drank alcohol for 3 years. Denies heavy drinking in the past. Review of Systems All review of systems pertinent positives as per HPI. Patient is a poor historian. Past Medical History Past Medical History: GERD/Reflux, Hyperlipidemia, Hypertension History of Any Multi-Drug Resistant Organisms: None Reported Past Surgical History: No Surgical Hx Reported Additional Past Surgical History / Comment(s): left shoulder surgery Past Anesthesia/Blood Transfusion Reactions: No Reported Reaction Past Psychological History: No Psychological Hx Reported Past Alcohol Use History: None Reported, Rare Past Drug Use History: None Reported - Past Family History Mother Family Medical History: Cancer Additional Family Medical History / Comment(s): unknown type of cancer Father Family Medical History: COPD Medications and Allergies Home Medications Medication Instructions Recorded Confirmed Type Acetaminophen Tab [Tylenol] 650 mg PO Q4H PRN MDD 3 GRAMS 08/24/24 08/24/24 History Atorvastatin [Lipitor] 80 mg PO HS@1900 08/24/24 08/24/24 History Baclofen [Lioresal] 10 mg PO TID@0700,1400,1900 08/24/24 08/24/24 History Bismuth Subsalicylate 524 mg PO Q30M PRN MDD 240ML 08/24/24 08/24/24 History [Pepto-Bismol] Docusate [Colace] 100 mg PO DAILY PRN 08/24/24 08/24/24 History Gabapentin [Neurontin] 100 mg PO TID@0700,1400,1900 08/24/24 08/24/24 History HYDROcodone/APAP 5-325MG [Sneads 1 tab PO Q6HR PRN 08/24/24 08/24/24 History 5-325] LORazepam [Ativan] 1 mg PO TID PRN 08/24/24 08/24/24 History Magnesium Hydroxide [Milk of 2,400 mg PO DAILY PRN 08/24/24 08/24/24 History Magnesia] Maxtussin 200mg/10ml 200 mg PO BID PRN 08/24/24 08/24/24 History Omeprazole [PriLOSEC] 20 mg PO AC-SUPPER@1600 08/24/24 08/24/24 History Ticagrelor [Brilinta] 90 mg PO BID@0700,1900 08/24/24 08/24/24 History Tylenol Cold/Flu Severe 2 cap PO Q4H PRN MDD 10 CAPS 08/24/24 08/24/24 History bisacodyL [Dulcolax] 10 mg RECTAL DAILY PRN 08/24/24 08/24/24 History cloZAPine [Clozaril] 25 mg PO BID@0700,1600 08/24/24 08/24/24 History polyethylene glycoL 3350 [Miralax] 17 gm PO DAILY PRN 08/24/24 08/24/24 History traZODone HCL [Desyrel] 50 mg PO HS@1900 08/24/24 08/24/24 History Allergies Allergy/AdvReac Type Severity Reaction Status Date / Time No Known Allergies Allergy Verified 08/24/24 13:46 Physical Examination - Vital Signs Vital Signs: Vital Signs Temp Pulse Resp BP Pulse Ox 08/25/24 18:52 97.8 F 78 17 135/96 93 L 08/25/24 15:03 97.6 F 81 18 157/95 94 L 08/25/24 12:35 98.9 F 75 18 154/93 95 08/25/24 08:36 78 18 150/98 93 L 08/25/24 07:30 97.5 F L 98 19 170/102 96 08/25/24 07:18 97.5 F L 08/25/24 06:01 72 18 117/85 90 L 08/25/24 04:47 59 L 18 133/92 92 L 08/24/24 22:55 81 18 130/78 Intake and Output 08/25/24 08/25/24 08/25/24 06:59 14:59 22:59 Output Total 600 Balance -600 Output: Urine 600 Patient is is an elderly male, in no acute distress. Patient is alert awake. Patient states it is the month of February and year is 1993, then said was 1923 then 2023. He believes it is a spring season, although may be summer. He knows that he is in [place] in a hospital in [place] and name of the current president Mr. Lyman. Speech and language functions are normal. Patient can name and repeat very well. No obvious aphasia or dysarthria. Attention, concentration is diminished and fund of knowledge is borderline. On cranial nerve examination, pupils are equal, round and reacting to light, visual islas revealed left homonymous hemianopia. Extraocular muscles are intact with no nystagmus. Patient has slight left facial asymmetry. His tongue protrudes to the midline. Palatal elevation and sensation normal, hearing and shoulder shrug normal, facial sensation normal. On muscle strength testing, there is left pronator drift and the left arm hits the bed. The left leg also hits the bed. Muscle strength is normal in the right side of the body. The left side deltoid 3+ biceps 4, triceps 5-, financial services assistant 4 4-, hip flexion 3+, ankle dorsiflexion 3. Deep tendon reflexes are asymmetric (right/left) biceps 1/2, brachioradialis 1/2, knees trace/trace and plantars are flat bilaterally. Sensory to touch is equal with no neglect, but patient clearly neglects left side on double simultaneous stimulation. Cerebellar function showed ataxia for idhcqd-dv-rppo testing only on the left side. No dysdiadochokinesia. Patient has ataxia for unva-vw-xama testing only on the left side. Tone and bulk of muscles normal. Gait deferred.. On general examination, there is no carotid bruit or murmur, S1-S2 audible. Chest is clear on consultation. Abdomen is soft nontender. No organomegaly, bowel sounds present. Peripheral pulses are present. No peripheral edema. Results - Laboratory Findings CBC and BMP: 08/24/24 12:00 08/24/24 12:00 Abnormal Lab Findings: Abnormal Labs 08/24/24 08/25/24 12:00 06:34 Glucose 116 H Calcium 10.4 H HDL Cholesterol 23.10 L Assessment and Plan Assessment: * 68-year-old male with history of right MCA territory ischemic CVA with left hemiparesis, came with worsening of symptoms. Rule out acute on chronic CVA. Patient's current NIH stroke scale is 10, but unsure what is new, what is old findings. * History of CVA January 2024 with residual left hemiplegia. * Right ICA occlusion, probably chronic * Hypertension * Hyperlipidemia * Ex tobacco use Plan: Agree with MRI of the brain without contrast, evaluate for acute CVA 2-D echo revealed LVEF 55 to 60%. No obvious regional wall motion abn ormalities. Mild left atrial dilation. No significant valve dysfunction. CTA head and neck showed: Occlusion of the proximal right ICA. Crossover from left to right A1 and M1 segments. Carotid Doppler, revealed no flow identified within the right ICA. Obstruction and critical stenosis within the differential. Patient was seen by vascular surgery, recommending medical management, no surgical intervention indicated for occluded ICA. EEG was completed, which was abnormal due to background slowing, suggestive of mild encephalopathy. No focal, lateralized or epileptiform activity was seen. Fasting a.m. lipid panel cholesterol 87, LDL 39, triglycerides 122 and HDL 23. Continue Lipitor 80 mg daily (home medication) Hemoglobin A1c 7.0, probably new onset diabetes. IM to address. Permissive hypertension for next 24-48 hours Patient apparently has been taking Brilinta 90 mg twice daily. Agree with adding aspirin 80 mg daily. Neuro checks as per protocol. Telemetry monitoring rule out any arrhythmia PT, OT, speech therapy DVT prophylaxis: Heparin 5000 units subcu every 8 hours Patient has a public guardian, and we will try to obtain collateral history from the guardian. Neurology will continue to follow. Thank you for the consult.
--- NOTE | 2024-08-26 11:49 | P.PN ---
Subjective Progress Note Date: 08/26/24 Principal diagnosis: Right ICA occlusion Patient seen and examined this morning. Patient was sleeping but easily arousable. Reports no acute changes or new focal deficits. Objective - Vital Signs Vital signs: Vital Signs Temp 97.7 F 08/26/24 04:00 Pulse 71 08/26/24 04:00 Resp 16 08/26/24 04:00 BP 153/87 08/26/24 04:00 Pulse Ox 94 L 08/26/24 04:00 FiO2 Intake & Output 08/25/24 08/26/24 08/26/24 18:59 06:59 18:59 Intake Total 540 Output Total 300 700 Balance -300 -160 Weight 94 kg Intake: Oral 540 Output: Urine 300 700 Other: Voiding Method Urinal - Exam General appearance: The patient is alert, oriented, appears in no acute distress. HET: Head is normocephalic and atraumatic. Pupils are equal and reactive. Neck: Supple. No audible carotid bruit. Heart: Regular. Lungs: Equal expansion, normal respiratory effort. Abdomen: Soft, nontender, nondistended. Extremities: Normal skin color and turgor. Palpable radial and DP pulses. Neurological: Patient drowsy but easily arousable. Answers questions appropriately. - Labs CBC & Chem 7: 08/24/24 12:00 08/24/24 12:00 Labs: Abnormal Lab Results - Last 24 Hours (Table) 08/25/24 Range/Units 06:34 HDL Cholesterol 23.10 L (40.00-60.00) mg/dL Assessment and Plan Assessment: 1. Right internal carotid artery occlusion 2. Altered mental status changes 3. History of recent stroke with residual left-sided weakness Plan: There is no indication for any vascular surgical intervention for right ICA occlusion. MRI pending Continue with further recommendations and workup from neurology. Thank you for this consultation, we will sign off at this time. Patient can certainly follow up with vascular surgery for continued surveillance of left ICA although there is less than 50% noted. Or may continue with follow-up with consultants from previous hospitalization in [place]. The impression and plan of care has been dictated as directed. I performed a history and examination of this patient, discussed the same with the dictator. I agree with the dictator's note ,documented as a scribe. Any additional findings or plans will be noted.
[2024-08-26] MEDS: HEPARIN SODIUM,PORCINE 5,000 UNIT/ML 1 ML VIAL SQ SCH (13:00)
--- NOTE | 2024-08-26 17:11 | P.PN ---
Progress Note - Text Progress Note Date: 08/26/24 Chief Complaint: Altered mentation Patient was seen in the ER. This is a 64-year-old patient follows with visiting physician Dr. Stringer. History is obtained by the daughter at the bedside. Patient had February of this year had a stroke. Was admitted to an outside hospital for about 3 weeks. Patient is putting much on the left side including arm and leg has minimal movement. Patient is able to feed himself. Able to communicate. Patient also has a baseline some nasolabial flattening on the left side of the face. Patient is a resident of [facility]. Patient is able to stand and needs private. At baseline. Patient not able to sleep properly hence was is given Seroquel. That was discontinued 2 days ago. Patient was put on Xanax. Patient was noticed to have altered mentation. Was mumbling his words. But patient is able to answer simple question the ER when I saw him. According to the daughter patient had looks like improved to his baseline. No other neurological deficit was seen or reported by the daughter. August 25: Patient overflowing the ER. Seen by speech therapist. On chopped diet. [place] thick liquids. Assisted feeding. Spoke to the nurse. Patient able to tolerate his diet. CT angio of the neck showed complete occlusion of the right internal carotid artery. No intervention per vascular. Await input from neurology. Patient able to hold a conversation. Note blood pressure was noted to be higher as patient not able to take his medications. Now he can have at that he is tolerating a diet. August 26: Sitting up. Eating well. Spoke to speech therapist. Ann-diet has been advanced. Pending MRI of the brain. Speech is fairly good now. Blood pressure well-controlled. Active Medications Acetaminophen (Acetaminophen Tab 325 Mg Tab) 650 mg PO Q4H PRN PRN Reason: Pain or Fever > 100.5 Aspirin (Aspirin 81 Mg) 81 mg PO DAILY [facility] Last Admin: 08/26/24 13:00 Dose: 81 mg Atorvastatin Calcium (Atorvastatin 80 Mg Tab) 80 mg PO HS@1900 [facility] Last Admin: 08/25/24 19:03 Dose: 80 mg Baclofen (Baclofen 10 Mg Tab) 10 mg PO TID@0700,1400,1900 [facility] Last Admin: 08/26/24 13:00 Dose: 10 mg Bisacodyl (Bisacodyl 10 Mg Supp) 10 mg RECTAL DAILY PRN PRN Reason: Constipation Bismuth Subsalicylate (Bismuth Subsalicylate 4,192 Mg/240 Ml Bottle) 524 mg PO Q30M PRN PRN Reason: GI Upset Docusate Sodium (Docusate 100 Mg Cap) 100 mg PO DAILY PRN PRN Reason: Constipation Gabapentin (Gabapentin 100 Mg Cap) 100 mg PO TID@0700,1400,1900 [facility] Last Admin: 08/26/24 13:00 Dose: 100 mg Guaifenesin (Guaifenesin Syrup 100mg/5ml 200 Mg/10 Ml Cup) 200 mg PO BID PRN PRN Reason: Cough Heparin Sodium (Porcine) (Heparin Sodium,Porcine 5,000 Unit/Ml 1 Ml Vial) 5,000 unit SQ Q12HR [facility] Last Admin: 08/26/24 13:00 Dose: 5,000 unit Sodium Chloride (Saline 0.9%) 1,000 mls @ 100 mls/hr IV .Q10H [facility] Last Admin: 08/26/24 09:20 Dose: 100 mls/hr Losartan Potassium (Losartan 50 Mg Tab) 50 mg PO HS [facility] Last Admin: 08/25/24 21:49 Dose: 50 mg Magnesium Hydroxide (Magnesium Hydroxide 2,400 Mg/30 Ml Cup) 2,400 mg PO DAILY PRN PRN Reason: 3 DAYS NO BM Pantoprazole Sodium (Pantoprazole 40 Mg Tablet) 40 mg PO AC-SUPPER@1600 [facility] Last Admin: 08/25/24 15:11 Dose: 40 mg Polyethylene Glycol (Polyethylene Glycol 3350 17 Gm Powd.Pack) 17 gm PO DAILY PRN PRN Reason: Constipation Ticagrelor (Ticagrelor 90 Mg Tab) 90 mg PO BID@0700,1900 [facility] Last Admin: 08/26/24 06:30 Dose: 90 mg Trazodone HCl (Trazodone Hcl 50 Mg Tab) 50 mg PO HS@1900 [facility] Last Admin: 08/25/24 19:03 Dose: 50 mg Physical examination: VITAL SIGNS: 97.7, 78, 16, 132/77, 95% room air GENERAL: Reclining in bed, comfortable EYES: Pupils equal. Conjunctiva irene l. HEENT: External appearance of nose and ears normal, oral cavity grossly normal. NECK: JVD not raised; masses not palpable. HEART: First and second heart sounds are normal; no edema. LUNGS: Respiratory rate normal; clear to auscultation. ABDOMEN: Soft, nontender, liver spleen not palpable, no masses palpable. PSYCH: Patient can answer some simple questions. Not able to tell the year or exactly where he is right now. l. MUSCULOSKELETAL:No Clubbing/cyanosis;muscles-grossly intact NEUROLOGICAL: Speaking fair sentences. . Some flattening of the left nasolabial fold. Left side power 4/5. Swallowing much improved per speech INVESTIGATIONS, reviewed in the clinical context: 2D echocardiogram: EF 55 to 60%. EEG: Some evidence of mild encephalopathy. No epileptiform activity. LDL 39.5 CT angio of the brain and neck: Complete occlusion of the proximal right ICA August 24, 2024: White count 6.9 hemoglobin 15.9 platelets 269 sodium 141 potassium 3.5 creatinine 0.76 EKG tracing personally reviewed by me-normal sinus rhythm. CT scans of brain: Encephalomalacia involving the right parietal temporal occipital lobes from prior insult. Remote lacunar infarct in the left basal ganglia. White matter changes. Chest x-ray film personally reviewed by me-cardiomegaly. Carotid Doppler no flow identified within the right internal ArteryShows Assessment plan: -Altered mentation. Could be metabolic encephalopathy from Xanax. Stroke in the brainstem affecting the KESHAWN system could cause this. Initial CT scan unremarkable. But in the ER as per the daughter patient is quite back to his baseline. MRI brain pending. Neurology consulted. Neurochecks. EEG,-negative for epileptiform activity Consult PT OT, speech therapy -Chronic left severe hemiparesis with left facial weakness, from stroke in February 2024. At baseline patient is able to stand and can pivot with help. -Hyperlipidemia Lipitor 80 mg nightly -Complete occlusion of the right proximal ICA Seen by vascular Dr. Valdes. Not for any further surgical intervention. Medical management -GERD Prilosec -Chronic constipation Laxatives -Mild dysphagia per speech therapy Following improved. -Chronic medical debility secondary to prior stroke Baseline only able to stand and pivot with help. -Cognitive impairment due to underlying stroke -Full code -Public guardian: Jacey Rogers. [facility] Diet advanced per speech. Pending MRI. Past Medical History Past Medical History: GERD/Reflux, Hyperlipidemia, Hypertension History of Any Multi-Drug Resistant Organisms: None Reported Past Surgical History: No Surgical Hx Reported Additional Past Surgical History / Comment(s): left shoulder surgery Past Anesthesia/Blood Transfusion Reactions: No Reported Reaction Past Psychological History: No Psychological Hx Reported Past Alcohol Use History: None Reported, Rare Past Drug Use History: None Reported
--- NOTE | 2024-08-27 08:56 | P.PN ---
Subjective Progress Note Date: 08/26/24 Patient was seen for a follow-up. Patient is laying in the bed, offers no complaints. Objective - Vital Signs Vital signs: Vital Signs Temp 97.7 F 08/26/24 11:00 Pulse 78 08/26/24 15:25 Resp 16 08/26/24 15:25 BP 132/77 08/26/24 15:25 Pulse Ox 95 08/26/24 15:25 FiO2 Intake & Output 08/25/24 08/26/24 08/26/24 18:59 06:59 18:59 Intake Total 540 Output Total 300 700 Balance -300 -160 Weight 94 kg Intake: Oral 540 Output: Urine 300 700 Other: Voiding Method Urinal Urinal # Bowel Movements 1 - Exam Unchanged. - Labs CBC & Chem 7: 08/24/24 12:00 08/24/24 12:00 Labs: Abnormal Lab Results - Last 24 Hours (Table) 08/24/24 Range/Units 12:00 Hemoglobin A1c 7.0 H (<=6.0) % Assessment and Plan Assessment: * 68-year-old male with history of right MCA territory ischemic CVA with left hemiparesis, came with worsening of symptoms. Rule out acute on chronic CVA. Patient's current NIH stroke scale is 10, but unsure what is new, what is old findings. * History of CVA January 2024 with residual left hemiplegia. * Right ICA occlusion, probably chronic * Hypertension * Hyperlipidemia * Ex tobacco use Plan: Await MRI of the brain without contrast, evaluate for acute CVA 2-D echo revealed LVEF 55 to 60%. No obvious regional wall motion abnormalities. Mild left atrial dilation. No significant valve dysfunction. CTA head and neck showed: Occlusion of the proximal right ICA. Crossover from left to right A1 and M1 segments. Carotid Doppler, revealed no flow identified within the right ICA. Obstruction and critical stenosis within the differential. Patient was seen by vascular surgery, recommending medical management, no surgical intervention indicated for occluded ICA. EEG was completed, which was abnormal due to background slowing, suggestive of mild encephalopathy. No focal, lateralized or epileptiform activity was seen. Fasting a.m. lipid panel cholesterol 87, LDL 39, triglycerides 122 and HDL 23. Continue Lipitor 80 mg daily (home medication) Hemoglobin A1c 7.0, probably new onset diabetes. IM to address. Permissive hypertension for next 24 hours Patient apparently has been taking Brilinta 90 mg twice daily. Agree with adding aspirin 80 mg daily. Neuro checks every 4 hours. Telemetry monitoring rule out any arrhythmia PT, OT, speech therapy DVT prophylaxis: Heparin 5000 units subcu every 12 hours Patient has a public guardian, and we will try to obtain collateral history from the guardian after MRI is completed.
--- NOTE | 2024-08-27 17:05 | MR ---
EXAMINATION TYPE: MR brain wo/w con DATE OF EXAM: 08/27/2024 COMPARISON: CT brain 08/24/2024 HISTORY: ams. prior stroke CONTRAST: Performed utilizing 9 mL intravenous Gadavist gadolinium contrast. TECHNIQUE: Multiplanar, multiecho imaging on a 3.0 Hilda magnet is performed through the brain. Stud y is performed within 24 hours of arrival to the hospital. The craniovertebral junction is normal. The pituitary is normal. There is a large defect through the right parietal and occipital lobes compatible with prior infarct. This extends through the right temporal lobe. On diffusion there is increased signal along the josefa x of the occipital lobe region. Avani Infarct ischemia could be considered. There is some minimal periventricular white matter hypodensity, likely on the basis of chronic white matter ischemic change. Ventricles and sulci away from the infarct are appropriate for the patient age. Some ex vacuo effect adjacent to the infarct is evident. Is opacification to the left sphenoid sinus and posterior ethmoid air cells. Some mucosal thickening is within the inferior posterior left maxillary sinus. Remaining paranasal sinuses appear clear. IMPRESSION: 1. Old infarct left parietal occipital and temporal lobes. 2. Some avani-infarct acute to subacute ischemic change may be present in the occipital region. Correl ate with symptoms. [facility], Workstation: [facility], 08/27/2024 5:02 PM
--- NOTE | 2024-08-27 17:28 | P.PN ---
Progress Note - Text Progress Note Date: 08/27/24 Chief Complaint: Altered mentation Patient was seen in the ER. This is a 64-year-old patient follows with visiting physician Dr. Stringer. History is obtained by the daughter at the bedside. Patient had February of this year had a stroke. Was admitted to an outside hospital for about 3 weeks. Patient is putting much on the left side including arm and leg has minimal movement. Patient is able to feed himself. Able to communicate. Patient also has a baseline some nasolabial flattening on the left side of the face. Patient is a resident of [facility]. Patient is able to stand and needs private. At baseline. Patient not able to sleep properly hence was is given Seroquel. That was discontinued 2 days ago. Patient was put on Xanax. Patient was noticed to have altered mentation. Was mumbling his words. But patient is able to answer simple question the ER when I saw him. According to the daughter patient had looks like improved to his baseline. No other neurological deficit was seen or reported by the daughter. August 25: Patient overflowing the ER. Seen by speech therapist. On chopped diet. Spry thick liquids. Assisted feeding. Spoke to the nurse. Patient able to tolerate his diet. CT angio of the neck showed complete occlusion of the right internal carotid artery. No intervention per vascular. Await input from neurology. Patient able to hold a conversation. Note blood pressure was noted to be higher as patient not able to take his medications. Now he can have at that he is tolerating a diet. August 26: Sitting up. Eating well. Spoke to speech therapist. Ann-diet has been advanced. Pending MRI of the brain. Speech is fairly good now. Blood pressure well-controlled. August 27: Sitting up. Comfortable. Oral intake fair. MRI of the brain results came back this evening. Reviewed with Dr. Brooks from neurology. Some milagro-infarct extension. Aspirin is being added. Spoke to nurse Padmini. No wheelchair van available after 5 PM. Patient will be discharged tomorrow Active Medications Acetaminophen (Acetaminophen Tab 325 Mg Tab) 650 mg PO Q4H PRN PRN Reason: Pain or Fever > 100.5 Aspirin (Aspirin 81 Mg) 81 mg PO DAILY [facility] Last Admin: 08/27/24 09:09 Dose: 81 mg Atorvastatin Calcium (Atorvastatin 80 Mg Tab) 80 mg PO HS@1900 [facility] Last Admin: 08/26/24 18:40 Dose: 80 mg Baclofen (Baclofen 10 Mg Tab) 10 mg PO TID@0700,1400,1900 [facility] Last Admin: 08/27/24 12:13 Dose: 10 mg Bisacodyl (Bisacodyl 10 Mg Supp) 10 mg RECTAL DAILY PRN PRN Reason: Constipation Bismuth Subsalicylate (Bismuth Subsalicylate 4,192 Mg/240 Ml Bottle) 524 mg PO Q30M PRN PRN Reason: GI Upset Docusate Sodium (Docusate 100 Mg Cap) 100 mg PO DAILY PRN PRN Reason: Constipation Gabapentin (Gabapentin 100 Mg Cap) 100 mg PO TID@0700,1400,1900 [facility] Last Admin: 08/27/24 12:13 Dose: 100 mg Guaifenesin (Guaifenesin Syrup 100mg/5ml 200 Mg/10 Ml Cup) 200 mg PO BID PRN PRN Reason: Cough Heparin Sodium (Porcine) (Heparin Sodium,Porcine 5,000 Unit/Ml 1 Ml Vial) 5,000 unit SQ Q12HR [facility] Last Admin: 08/27/24 09:09 Dose: 5,000 unit Sodium Chloride (Saline 0.9%) 1,000 mls @ 100 mls/hr IV .Q10H [facility] Last Admin: 08/27/24 09:09 Dose: 100 mls/hr Losartan Potassium (Losartan 50 Mg Tab) 50 mg PO HS [facility] Last Admin: 08/26/24 20:26 Dose: 50 mg Magnesium Hydroxide (Magnesium Hydroxide 2,400 Mg/30 Ml Cup) 2,400 mg PO DAILY PRN PRN Reason: 3 DAYS NO BM Pantoprazole Sodium (Pantoprazole 40 Mg Tablet) 40 mg PO AC-SUPPER@1600 [facility] Last Admin: 08/26/24 18:40 Dose: 40 mg Polyethylene Glycol (Polyethylene Glycol 3350 17 Gm Powd.Pack) 17 gm PO DAILY PRN PRN Reason: Constipation Ticagrelor (Ticagrelor 90 Mg Tab) 90 mg PO BID@0700,1900 [facility] Last Admin: 08/27/24 05:55 Dose: 90 mg Trazodone HCl (Trazodone Hcl 50 Mg Tab) 50 mg PO HS@1900 [facility] Last Admin: 08/26/24 18:40 Dose: 50 mg Physical examination: VITAL SIGNS: 96.9, 60, 18, 158 x 70, 95% room air GENERAL: Sitting up in bed, comfortable EYES: Pupils equal. Conjunctiva irene l. HEENT: External appearance of nose and ears normal, oral cavity grossly normal. NECK: JVD not raised; masses not palpable. HEART: First and second heart sounds are normal; no edema. LUNGS: Respiratory rate normal; clear to auscultation. ABDOMEN: Soft, nontender, liver spleen not palpable, no masses palpable. PSYCH: Patient can answer some simple questions. Not able to tell the year or exactly where he is right now. l. MUSCULOSKELETAL:No Clubbing/cyanosis;muscles-grossly intact NEUROLOGICAL: Speaking fair sentences. . Some flattening of the left nasolabial fold. Left side power 4/5. Swallowing much improved per speech INVESTIGATIONS, reviewed in the clinical context: MRI brain [August 27] old infarct left parietal occipital and temporal lobes. Some milagro-infarct acute to subacute ischemic change may be present in the occipital area. 2D echocardiogram: EF 55 to 60%. EEG: Some evidence of mild encephalopathy. No epileptiform activity. LDL 39.5 CT angio of the brain and neck: Complete occlusion of the proximal right ICA August 24, 2024: White count 6.9 hemoglobin 15.9 platelets 269 sodium 141 potassium 3.5 creatinine 0.76 EKG tracing personally reviewed by me-normal sinus rhythm. CT scans of brain: Encephalomalacia involving the right parietal temporal occipital lobes from prior insult. Remote lacunar infarct in the left basal ganglia. White matter changes. Chest x-ray film personally reviewed by me-cardiomegaly. Carotid Doppler no flow identified within the right internal ArteryShows Assessment plan: -Acute extension of ischemic stroke in the occipital region, confirmed with MRI. EEG,-negative for epileptiform activity Aspirin added. Continue Brilinta Seen by OT PT speech -Chronic left severe hemiparesis with left facial weakness, from stroke in February 2024. At baseline patient is able to stand and can pivot with help. 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 Valdes. Not for any further surgical intervention. Medical management -GERD Prilosec -Chronic constipation Laxatives -Mild dysphagia per speech therapy Following improved. -Chronic medical debility secondary to prior stroke Baseline only able to stand and pivot with help. -Cognitive impairment due to underlying stroke -Full code -Public guardian: Jacey Rogers. [facility] Patient will be discharged tomorrow. Aspirin added. Past Medical History Past Medical History: GERD/Reflux, Hyperlipidemia, Hypertension History of Any Multi-Drug Resistant Organisms: None Reported Past Surgical History: No Surgical Hx Reported Additional Past Surgical History / Comment(s): left shoulder surgery Past Anesthesia/Blood Transfusion Reactions: No Reported Reaction Past Psychological History: No Psychological Hx Reported Past Alcohol Use History: None Reported, Rare Past Drug Use History: None Reported
[2024-08-27 21:13] LABS: Glucose,Whole Blood 100 mg/dL (70-110)
--- NOTE | 2024-08-28 07:23 | CT ---
EXAMINATION TYPE: CT brain wo con DATE OF EXAM: 08/28/2024 COMPARISON: 08/24/2024, MRI 08/27/2024 INDICATION: altered mental DLP: 2579 mGycm, Automated exposure control for dose reduction was used. CONTRAST: None CT of the brain is performed utilizing 3 mm thick sections through the posterior fossa and 3 mm thick sections through the remaining calvarium. Study is performed within 24 hours of arrival to the hosp ital. No abnormal hyperdensity is present to suggest an acute intracranial hemorrhage. No mass lesion is evident. No acute infarcts are evident. Old right temporal infarct extending into the trilobar region is evide nt. Underlying acute changes are not identified on the CT examination. Please see MRI report of 2023. Left periventricular lacunar infarct adjacent to the anterior horn left lateral ventricle prese nt previously Ventricles and sulci are prominent for the patient age. Extra-axial effect is evident on the right l ateral ventricle occipital horn Opacification of the left sphenoid sinus is present. There is posterior left ethmoid air cell opacifi cation. The remaining paranasal sinuses and mastoid air cells are clear. IMPRESSION: 1. No acute intracranial process. Follow up MRI can be performed as clinically indicated. [facility], Workstation: [facility], 08/28/2024 7:21 AM
--- NOTE | 2024-08-28 16:46 | P.PN ---
Progress Note - Text Progress Note Date: 08/28/24 Chief Complaint: Altered mentation Patient was seen in the ER. This is a 64-year-old patient follows with visiting physician Dr. Stringer. History is obtained by the daughter at the bedside. Patient had February of this year had a stroke. Was admitted to an outside hospital for about 3 weeks. Patient is putting much on the left side including arm and leg has minimal movement. Patient is able to feed himself. Able to communicate. Patient also has a baseline some nasolabial flattening on the left side of the face. Patient is a resident of [facility]. Patient is able to stand and needs private. At baseline. Patient not able to sleep properly hence was is given Seroquel. That was discontinued 2 days ago. Patient was put on Xanax. Patient was noticed to have altered mentation. Was mumbling his words. But patient is able to answer simple question the ER when I saw him. According to the daughter patient had looks like improved to his baseline. No other neurological deficit was seen or reported by the daughter. August 25: Patient overflowing the ER. Seen by speech therapist. On chopped diet. [place]ins thick liquids. Assisted feeding. Spoke to the nurse. Patient able to tolerate his diet. CT angio of the neck showed complete occlusion of the right internal carotid artery. No intervention per vascular. Await input from neurology. Patient able to hold a conversation. Note blood pressure was noted to be higher as patient not able to take his medications. Now he can have at that he is tolerating a diet. August 26: Sitting up. Eating well. Spoke to speech therapist. Ann-diet has been advanced. Pending MRI of the brain. Speech is fairly good now. Blood pressure well-controlled. August 27: Sitting up. Comfortable. Oral intake fair. MRI of the brain results came back this evening. Reviewed with Dr. Brooks from neurology. Some milagro-infarct extension. Aspirin is being added. Spoke to nurse Padmini. No wheelchair van available after 5 PM. Patient will be discharged tomorrow August 28: Overnight patient was a bit confused. Daughter is at bedside. Did discuss the MRI results with her. She did confirm that patient has left-sided visual inattention from prior stroke. Confirmed at the bedside today. Patient is already on aspirin and Brilinta. Eating fairly well. Discussed with the daughter. Will cut back baclofen to 5 mg 3 times daily. Patient home dose of clozapine is being resumed. Patient has no new focal weakness. CT scan brain done today. Shows no changes. Active Medications Acetaminophen (Acetaminophen Tab 325 Mg Tab) 650 mg PO Q4H PRN PRN Reason: Pain or Fever > 100.5 Aspirin (Aspirin 81 Mg) 81 mg PO DAILY [facility] Last Admin: 08/28/24 09:00 Dose: 81 mg Atorvastatin Calcium (Atorvastatin 80 Mg Tab) 80 mg PO HS@1900 [facility] Last Admin: 08/27/24 17:30 Dose: 80 mg Baclofen (Baclofen 10 Mg Tab) 5 mg PO TID [facility] Bisacodyl (Bisacodyl 10 Mg Supp) 10 mg RECTAL DAILY PRN PRN Reason: Constipation Bismuth Subsalicylate (Bismuth Subsalicylate 4,192 Mg/240 Ml Bottle) 524 mg PO Q30M PRN PRN Reason: GI Upset Docusate Sodium (Docusate 100 Mg Cap) 100 mg PO DAILY PRN PRN Reason: Constipation Gabapentin (Gabapentin 100 Mg Cap) 100 mg PO TID@0700,1400,1900 [facility] Last Admin: 08/28/24 15:36 Dose: 100 mg Guaifenesin (Guaifenesin Syrup 100mg/5ml 200 Mg/10 Ml Cup) 200 mg PO BID PRN PRN Reason: Cough Heparin Sodium (Porcine) (Heparin Sodium,Porcine 5,000 Unit/Ml 1 Ml Vial) 5,000 unit SQ Q12HR [facility] Last Admin: 08/28/24 09:00 Dose: 5,000 unit Losartan Potassium (Losartan 50 Mg Tab) 50 mg PO HS [facility] Last Admin: 08/27/24 22:01 Dose: Not Given Magnesium Hydroxide (Magnesium Hydroxide 2,400 Mg/30 Ml Cup) 2,400 mg PO DAILY PRN PRN Reason: 3 DAYS NO BM Pantoprazole Sodium (Pantoprazole 40 Mg Tablet) 40 mg PO AC-SUPPER@1600 [facility] Last Admin: 08/28/24 15:36 Dose: 40 mg Polyethylene Glycol (Polyethylene Glycol 3350 17 Gm Powd.Pack) 17 gm PO DAILY PRN PRN Reason: Constipation Ticagrelor (Ticagrelor 90 Mg Tab) 90 mg PO BID@0700,1900 [facility] Last Admin: 08/28/24 06:33 Dose: 90 mg Trazodone HCl (Trazodone Hcl 50 Mg Tab) 50 mg PO HS@1900 [facility] Last Admin: 08/27/24 17:30 Dose: 50 mg Physical examination: VITAL SIGNS: 97.7, 81, 18, 131 x 64, 94% room GENERAL: Reclining in bed. A bit hyperactive and talkative today. EYES: Pupils equal. Conjunctiva irene l. HEENT: External appearance of nose and ears normal, oral cavity grossly normal. NECK: JVD not raised; masses not palpable. HEART: First and second heart sounds are normal; no edema. LUNGS: Respiratory rate normal; clear to auscultation. ABDOMEN: Soft, nontender, liver spleen not palpable, no masses palpable. PSYCH: A bit hyperactive and talkative today. MUSCULOSKELETAL:No Clubbing/cyanosis;muscles-grossly intact NEUROLOGICAL: Speaking fair sentences. . Some flattening of the left nasolabial fold. Some decreased power on the left side.. Left-sided visual inattention. INVESTIGATIONS, reviewed in the clinical context: MRI brain [August 27] old infarct left parietal occipital and temporal lobes. Some milagro-infarct acute to subacute ischemic change may be present in the occipital area. 2D echocardiogram: EF 55 to 60%. EEG: Some evidence of mild encephalopathy. No epileptiform activity. LDL 39.5 CT angio of the brain and neck: Complete occlusion of the proximal right ICA August 24, 2024: White count 6.9 hemoglobin 15.9 platelets 269 sodium 141 potassium 3.5 creatinine 0.76 EKG tracing personally reviewed by me-normal sinus rhythm. CT scans of brain: Encephalomalacia involving the right parietal temporal occipital lobes from prior insult. Remote lacunar infarct in the left basal ganglia. White matter changes. Chest x-ray film personally reviewed by me-cardiomegaly. Carotid Doppler no flow identified within the right internal ArteryShows Assessment plan: -Acute extension of ischemic stroke in the occipital region, confirmed with MRI. EEG,-negative for epileptiform activity Aspirin added. Continue Brilinta Seen by OT PT speech Repeat CT scan [August 28]-unchanged -Increased agitation overnight... Home dose of clozapine resumed -Chronic left severe hemiparesis with left facial weakness, from stroke in February 2024. At baseline patient is able to stand and can pivot with help. 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 Valdes. Not for any further surgical intervention. Medical management -GERD Prilosec -Chronic constipation Laxatives -Mild dysphagia per speech therapy Following improved. -Chronic medical debility secondary to prior stroke Baseline only able to stand and pivot with help. -Cognitive impairment due to underlying stroke -Full code -Public guardian: Jacey Rogers. [facility] Repeat CT scan done today negative. Home dose of Clozaril being resumed. Cut back dose of baclofen. Continue with aspirin and Brilinta. Discussed with daughter at the bedside. Follow-up with neurology Past Medical History Past Medical History: GERD/Reflux, Hyperlipidemia, Hypertension History of Any Multi-Drug Resistant Organisms: None Reported Past Surgical History: No Surgical Hx Reported Additional Past Surgical History / Comment(s): left shoulder surgery Past Anesthesia/Blood Transfusion Reactions: No Reported Reaction Past Psychological History: No Psychological Hx Reported Past Alcohol Use History: None Reported, Rare Past Drug Use History: None Reported
[2024-08-28] MEDS: BACLOFEN 10 MG TAB PO SCH (21:50)
--- NOTE | 2024-08-29 08:44 | P.PN ---
Subjective Progress Note Date: 08/27/24 Patient was seen for a follow-up. Patient is laying in the bed, offers no complaints. Awaiting MRI of the brain. Objective - Vital Signs Vital signs: Vital Signs Temp 96.9 F L 08/27/24 08:00 Pulse 66 08/27/24 08:00 Resp 18 08/27/24 08:00 BP 154/75 08/27/24 08:00 Pulse Ox 94 L 08/27/24 08:00 FiO2 Intake & Output 08/26/24 08/27/24 08/27/24 18:59 06:59 18:59 Intake Total 540 240 Output Total 450 2300 600 Balance -450 -1760 -360 Weight 90 kg Intake: Oral 540 240 Output: Urine 450 2300 600 Other: Voiding Method Urinal Urinal # Bowel Movements 1 - Exam Unchanged. Patient continues to be left hemiplegic. Examination essentially unchanged. - Labs CBC & Chem 7: 08/24/24 12:00 08/24/24 12:00 Assessment and Plan Assessment: * 68-year-old male with history of right MCA territory ischemic CVA with left hemiparesis, came with worsening of symptoms. Rule out acute on chronic CVA. Patient's current NIH stroke scale is 10, but unsure what is new, what is old findings. * History of CVA January 2024 with residual left hemiplegia. * Right ICA occlusion, probably chronic * Hypertension * Hyperlipidemia * Ex tobacco use Plan: MRI brain revealed old infarct left parietal occipital and temporal lobes. Some EMA infarct acute to subacute ischemic change may be present in the occipital r egion. I personally reviewed MRI agree with the findings. Evidence of ema- infarct acute ischemia noted. 2-D echo revealed LVEF 55 to 60%. No obvious regional wall motion abnormalities. Mild left atrial dilation. No significant valve dysfunction. CTA head and neck showed: Occlusion of the proximal right ICA. Crossover from left to right A1 and M1 segments. Carotid Doppler, revealed no flow identified within the right ICA. Obstruction and critical stenosis within the differential. Patient was seen by vascular surgery, recommending medical management, no surgical intervention indicated for occluded ICA. EEG was completed, which was abnormal due to background slowing, suggestive of mild encephalopathy. No focal, lateralized or epileptiform activity was seen. Fasting a.m. lipid panel cholesterol 87, LDL 39, triglycerides 122 and HDL 23. Continue Lipitor 80 mg daily (home medication) Hemoglobin A1c 7.0, probably new onset diabetes. IM to address. Gradually optimize control of blood pressure. Avoid hypotension in the setting of carotid occlusion and stroke extension. Patient apparently has been taking Brilinta 90 mg twice daily. Agree with adding aspirin 80 mg daily, along with Brilinta. Neuro checks every 4 hours. Telemetry monitoring rule out any arrhythmia PT, OT, speech therapy DVT prophylaxis: Heparin 5000 units subcu every 12 hours Discussed with primary physician.
--- NOTE | 2024-08-29 08:54 | P.PN ---
Subjective Progress Note Date: 08/28/24 Patient was seen for a follow-up. I was called at 9:26 PM by Bessy that patient was talkative and alert and oriented earlier. When the nurse came to do the vitals and med Pass at 9:10 PM, he was not responsive or opening eyes, he was nodding appropriately but no verbal response. Patient was nonverbal, not opening eyes. Eyes were rolled back and when forced open. Per nursing report, patient has not slept in days. Patient also received trazodone to help sleep earlier for this happened. Stat CT head was ordered. It revealed no acute intracranial process. Follow-up MRI can be performed as clinically indicated. I personally reviewed CT head, no change. No hemorrhage. Objective - Vital Signs Vital signs: Vital Signs Temp 97.9 F 08/28/24 03:15 Pulse 80 08/28/24 16:00 Resp 18 08/28/24 16:00 BP 132/84 08/28/24 16:00 Pulse Ox 95 08/28/24 16:00 FiO2 Intake & Output 08/28/24 08/28/24 08/29/24 06:59 18:59 06:59 Intake Total 540 354 Output Total 1000 Balance -460 354 Weight 93 kg Intake: Oral 540 354 Output: Urine 1000 Other: Voiding Method Urinal External Catheter # Bowel Movements 1 - Exam Patient is alert and awake in no distress. Patient is extremely talkative. Patient is having tangential thoughts, rambling speech. Examination continues to show left hemiplegia. Also shows left homonymous hemianopia. Patient neglects left side on double simultaneous stimulation. - Labs CBC & Chem 7: 08/24/24 12:00 08/24/24 12:00 Assessment and Plan Assessment: * 68-year-old male with history of right MCA territory ischemic CVA with left hemiparesis, came with worsening of symptoms. MRI revealed some ema-infarct acute/subacute ischemic change noted in the occipital region. Possible stroke extension. * History of CVA January 2024 with residual left hemiplegia. * Altered mental status last night, likely related to deep sleep/side effect of trazodone. Patient apparently had not slept for last few nights, therefore had rebound sleep. Patient is back to baseline at this time. * Right ICA occlusion, probably chronic * Hypertension * Hyperlipidemia * Ex tobacco use Plan: Patient's examination is back to baseline. He continues to have left hemiplegia. Patient also has some underlying psychiatric condition for which he has been on clozapine. Patient apparently has not been receiving his clozapine because it is nonformulary. Recommend patient to receive clozapine through his home medication supply. CT head performed 08/28/2024 revealed no acute intracranial process. I personally reviewed CT head, no change. No hemorrhage. No need for repeat MRI. MRI brain revealed old infarct left parietal occipital and temporal lobes. Some EMA infarct acute to subacute ischemic change may be present in the occipital region. I personally reviewed MRI agree with the findings. Evidence of ema- infarct acute ischemia noted. 2-D echo revealed LVEF 55 to 60%. No obvious regional wall motion abnormalities. Mild left atrial dilation. No significant valve dysfunction. CTA head and neck showed: Occlusion of the proximal right ICA. Crossover from left to right A1 and M1 segments. Carotid Doppler, revealed no flow identified within the right ICA. Obstruction and critical stenosis within the differential. Patient was seen by vascular surgery, recommending medical management, no surgical intervention indicated for occluded ICA. EEG was completed, which was abnormal due to background slowing, suggestive of mild encephalopathy. No focal, lateralized or epileptiform activity was seen. Fasting a.m. lipid panel cholesterol 87, LDL 39, triglycerides 122 and HDL 23. Continue Lipitor 80 mg daily (home medication) Hemoglobin A1c 7.0, probably new onset diabetes. IM to address. Gradually optimize control of blood pressure. Avoid hypotension in the setting of carotid occlusion and stroke extension. Patient apparently has been taking Brilinta 90 mg twice daily. Agree with gisele ortiz aspirin 80 mg daily, along with Brilinta. Neuro checks every 4 hours. Telemetry monitoring rule out any arrhythmia PT, OT, speech therapy DVT prophylaxis: Heparin 5000 units subcu every 12 hours Discussed with primary physician. Neurologically clear for discharge.
[2024-08-29] MEDS: cloZAPine 25 MG TAB PO SCH (10:26)
--- NOTE | 2024-08-29 20:21 | P.PN ---
Progress Note - Text Progress Note Date: 08/29/24 Chief Complaint: Altered mentation Patient was seen in the ER. This is a 64-year-old patient follows with visiting physician Dr. Stringer. History is obtained by the daughter at the bedside. Patient had February of this year had a stroke. Was admitted to an outside hospital for about 3 weeks. Patient is putting much on the left side including arm and leg has minimal movement. Patient is able to feed himself. Able to communicate. Patient also has a baseline some nasolabial flattening on the left side of the face. Patient is a resident of [facility]. Patient is able to stand and needs private. At baseline. Patient not able to sleep properly hence was is given Seroquel. That was discontinued 2 days ago. Patient was put on Xanax. Patient was noticed to have altered mentation. Was mumbling his words. But patient is able to answer simple question the ER when I saw him. According to the daughter patient had looks like improved to his baseline. No other neurological deficit was seen or reported by the daughter. August 25: Patient overflowing the ER. Seen by speech therapist. On chopped diet. [place] thick liquids. Assisted feeding. Spoke to the nurse. Patient able to tolerate his diet. CT angio of the neck showed complete occlusion of the right internal carotid artery. No intervention per vascular. Await input from neurology. Patient able to hold a conversation. Note blood pressure was noted to be higher as patient not able to take his medications. Now he can have at that he is tolerating a diet. August 26: Sitting up. Eating well. Spoke to speech therapist. Ann-diet has been advanced. Pending MRI of the brain. Speech is fairly good now. Blood pressure well-controlled. August 27: Sitting up. Comfortable. Oral intake fair. MRI of the brain results came back this evening. Reviewed with Dr. Brooks from neurology. Some milagro-infarct extension. Aspirin is being added. Spoke to nurse Padmini. No wheelchair van available after 5 PM. Patient will be discharged tomorrow August 5: Overnight patient was a bit confused. Daughter is at bedside. Did discuss the MRI results with her. She did confirm that patient has left-sided visual inattention from prior stroke. Confirmed at the bedside today. Patient is already on aspirin and Brilinta. Eating fairly well. Discussed with the daughter. Will cut back baclofen to 5 mg 3 times daily. Patient home dose of clozapine is being resumed. Patient has no new focal weakness. CT scan brain done today. Shows no changes. August 29: Patient did not start her Clozaril yesterday. At pharmacy had to do some formalities. Spoke to pharmacist this morning. Resume the same. Patient having some hallucinations. Will see how patient does with the Clozaril. Per neurology no further input. Active Medications Acetaminophen (Acetaminophen Tab 325 Mg Tab) 650 mg PO Q4H PRN PRN Reason: Pain or Fever > 100.5 Aspirin (Aspirin 81 Mg) 81 mg PO DAILY [facility] Last Admin: 08/29/24 08:54 Dose: 81 mg Atorvastatin Calcium (Atorvastatin 80 Mg Tab) 80 mg PO HS@1900 [facility] Last Admin: 08/29/24 18:32 Dose: 80 mg Baclofen (Baclofen 10 Mg Tab) 5 mg PO TID [facility] Last Admin: 08/29/24 17:02 Dose: 5 mg Bisacodyl (Bisacodyl 10 Mg Supp) 10 mg RECTAL DAILY PRN PRN Reason: Constipation Bismuth Subsalicylate (Bismuth Subsalicylate 4,192 Mg/240 Ml Bottle) 524 mg PO Q30M PRN PRN Reason: GI Upset Clozapine (Clozapine 25 Mg Tab) 25 mg PO BID@0700,1600 [facility] Stop: 09/01/24 23:00 Last Admin: 08/29/24 17:02 Dose: 25 mg Docusate Sodium (Docusate 100 Mg Cap) 100 mg PO DAILY PRN PRN Reason: Constipation Gabapentin (Gabapentin 100 Mg Cap) 100 mg PO TID@0700,1400,1900 [facility] Last Admin: 08/29/24 18:32 Dose: 100 mg Guaifenesin (Guaifenesin Syrup 100mg/5ml 200 Mg/10 Ml Cup) 200 mg PO BID PRN PRN Reason: Cough Heparin Sodium (Porcine) (Heparin Sodium,Porcine 5,000 Unit/Ml 1 Ml Vial) 5,000 unit SQ Q12HR [facility] Last Admin: 08/29/24 08:54 Dose: 5,000 unit Losartan Potassium (Losartan 50 Mg Tab) 50 mg PO HS [facility] Last Admin: 08/28/24 21:49 Dose: 50 mg Magnesium Hydroxide (Magnesium Hydroxide 2,400 Mg/30 Ml Cup) 2,400 mg PO DAILY PRN PRN Reason: 3 DAYS NO BM Pantoprazole Sodium (Pantoprazole 40 Mg Tablet) 40 mg PO AC-SUPPER@1600 [facility] Last Admin: 08/29/24 17:02 Dose: 40 mg Polyethylene Glycol (Polyethylene Glycol 3350 17 Gm Powd.Pack) 17 gm PO DAILY PRN PRN Reason: Constipation Ticagrelor (Ticagrelor 90 Mg Tab) 90 mg PO BID@0700,1900 [facility] Last Admin: 08/29/24 18:32 Dose: 90 mg Trazodone HCl (Trazodone Hcl 50 Mg Tab) 50 mg PO HS@1900 [facility] Last Admin: 08/28/24 21:49 Dose: 50 mg Physical examination: VITAL SIGNS: 98.1, 84, 18, 101 x 63, 92% room air GENERAL: Reclining in bed. Slightly restless EYES: Pupils equal. Conjunctiva irene l. HEENT: External appearance of nose and ears normal, oral cavity grossly normal. NECK: JVD not raised; masses not palpable. HEART: First and second heart sounds are normal; no edema. LUNGS: Respiratory rate normal; clear to auscultation. ABDOMEN: Soft, nontender, liver spleen not palpable, no masses palpable. PSYCH: Does answer some questions. Sometimes hyperactive MUSCULOSKELETAL:No Clubbing/cyanosis;muscles-grossly intact NEUROLOGICAL: Speaking fair sentences. . Some flattening of the left nasolabial fold. Some decreased power on the left side.. Left-sided visual inattention. INVESTIGATIONS, reviewed in the clinical context: MRI brain [August 27] old infarct left parietal occipital and temporal lobes. Some milagro-infarct acute to subacute ischemic change may be present in the occipital area. 2D echocardiogram: EF 55 to 60%. EEG: Some evidence of mild encephalopathy. No epileptiform activity. LDL 39.5 CT angio of the brain and neck: Complete occlusion of the proximal right ICA August 24, 2024: White count 6.9 hemoglobin 15.9 platelets 269 sodium 141 potassium 3.5 creatinine 0.76 EKG tracing personally reviewed by me-normal sinus rhythm. CT scans of brain: Encephalomalacia involving the right parietal temporal oc cipital lobes from prior insult. Remote lacunar infarct in the left basal ganglia. White matter changes. Chest x-ray film personally reviewed by me-cardiomegaly. Carotid Doppler no flow identified within the right internal ArteryShows Assessment plan: -Acute extension of ischemic stroke in the occipital region, confirmed with MRI. EEG,-negative for epileptiform activity Aspirin added. Continue Brilinta Seen by OT PT speech Repeat CT scan [August 28]-unchanged -Increased agitation overnight... Clozapine-restarted by pharmacy today. Was ordered yesterday -Chronic left severe hemiparesis with left facial weakness, from stroke in February 2024. At baseline patient is able to stand and can pivot with help. 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 Valdes. Not for any further surgical intervention. Medical management -GERD Prilosec -Chronic constipation Laxatives -Mild dysphagia per speech therapy Following improved. -Chronic medical debility secondary to prior stroke Baseline only able to stand and pivot with help. -Cognitive impairment due to underlying stroke -Full code -Public guardian: Jacey Rogers. [facility] Will see how the patient does with Clozaril. Spoke to pharmacy to resume the same today. Other medications to continue. No further intervention per neurology. Past Medical History Past Medical History: GERD/Reflux, Hyperlipidemia, Hypertension History of Any Multi-Drug Resistant Organisms: None Reported Past Surgical History: No Surgical Hx Reported Additional Past Surgical History / Comment(s): left shoulder surgery Past Anesthesia/Blood Transfusion Reactions: No Reported Reaction Past Psychological History: No Psychological Hx Reported Past Alcohol Use History: None Reported, Rare Past Drug Use History: None Reported
--- NOTE | 2024-08-30 01:28 | P.PN ---
Subjective Progress Note Date: 08/29/24 08/29/2024: Patient was seen for follow-up. Offers no new complaints. Laying comfortably in the bed. 08/28/2024: Patient was seen for a follow-up. I was called at 9:26 PM by Per Kamryn that patient was talkative and alert and oriented earlier. When the nurse came to do the vitals and med Pass at 9:10 PM, he was not responsive or opening eyes, he was nodding appropriately but no verbal response. Patient was nonverbal, not opening eyes. Eyes were rolled back and when forced open. Per nursing report, patient has not slept in days. Patient also received trazodone to help sleep earlier for this happened. Stat CT head was ordered. It revealed no acute intracranial process. Follow-up MRI can be performed as clinically indicated. I personally reviewed CT head, no change. No hemorrhage. Objective - Vital Signs Vital signs: Vital Signs Temp 97.7 F 08/29/24 23:28 Pulse 63 08/29/24 23:28 Resp 18 08/29/24 23:28 BP 111/67 08/29/24 23:28 Pulse Ox 93 L 08/29/24 23:28 FiO2 Intake & Output 08/29/24 08/29/24 08/30/24 06:59 18:59 06:59 Intake Total 1560 894 Output Total 900 200 Balance 660 894 -200 Weight 94.5 kg Intake: Oral 1560 894 Output: Urine 900 200 Other: Voiding Method External Catheter External Catheter External Catheter - Exam Patient is alert and awake in no distress. Patient is extremely talkative. Patient is having tangential thoughts, rambling speech. Examination continues to show left hemiplegia. Also shows left homonymous hemianopia. Patient neglects left side on double simultaneous stimulation. - Labs CBC & Chem 7: 08/24/24 12:00 08/24/24 12:00 Assessment and Plan Assessment: * 68-year-old male with history of right MCA territory ischemic CVA with left hemiparesis, came with worsening of symptoms. MRI revealed some ema-infarct acute/subacute ischemic change noted in the occipital region. Possible stroke extension. * History of CVA January 2024 with residual left hemiplegia. * Altered mental status last night, likely related to deep sleep/side effect of trazodone. Patient apparently had not slept for last few nights, therefore had rebound sleep. Patient is back to baseline at this time. * Right ICA occlusion, probably chronic * Hypertension * Hyperlipidemia * Ex tobacco use Plan: Patient's examination is back to baseline. He continues to have left hemiplegia. Patient also has some underlying psychiatric condition for which he has been on clozapine. Patient apparently has not been receiving his clozapine because it is nonformulary. Recommend patient to receive clozapine through his home medication supply. CT head performed 08/28/2024 revealed no acute intracranial process. I personally reviewed CT head, no change. No hemorrhage. No need for repeat MRI. MRI brain revealed old infarct left parietal occipital and temporal lobes. Some EMA infarct acute to subacute ischemic change may be present in the occipital region. I personally reviewed MRI agree with the findings. Evidence of ema- infarct acute ischemia noted. 2-D echo revealed LVEF 55 to 60%. No obvious regional wall motion abnormalities. Mild left atrial dilation. No significant valve dysfunction. CTA head and neck showed: Occlusion of the proximal right ICA. Crossover from left to right A1 and M1 segments. Carotid Doppler, revealed no flow identified within the right ICA. Obstruction and critical stenosis within the differential. Patient was seen by vascular surgery, recommending medical management, no surgical intervention indicated for occluded ICA. EEG was completed, which was abnormal due to background slowing, suggestive of mild encephalopathy. No focal, lateralized or epileptiform activity was seen. Fasting a.m. lipid panel cholesterol 87, LDL 39, triglycerides 122 and HDL 23. Continue Lipitor 80 mg daily (home medication) Hemoglobin A1c 7.0, probably new onset diabetes. IM to address. Gradually optimize control of blood pressure. Avoid hypotension in the setting of carotid occlusion and stroke extension. Patient apparently has been taking Brilinta 90 mg twice daily. Agree with adding aspirin 81 mg daily, along with Brilinta. Neuro checks every 4 hours. Telemetry monitoring rule out any arrhythmia PT, OT, speech therapy DVT prophylaxis: Heparin 5000 units subcu every 12 hours Discussed with primary physician. Neurologically clear for discharge. Dr. Jose David Juarez starting neurology service for the morning. Please call neurology if any concerns.
[2024-08-30 03:36] VITALS: TEMP 97.6
[2024-08-30 09:35] VITALS: BP 118/79; PULSE 79; RESP 16
[2024-08-30] MEDS ORDERED: BACLOFEN 10 MG TAB PO PRN (10:28)
--- NOTE | 2024-08-30 15:20 | P.DS ---
Providers Date of admission: 08/24/24 15:39 Expected date of discharge: 08/30/24 Attending physician: Jaime Pendleton Consults: 08/24/24 15:38 Consult Physician Routine Consulting Provider: Bobbi Brooks Consult Reason/Comments: Slurred speech, rule out neurological/CVA Do you want consulting provider notified?: Yes Primary care physician: Holger Lipscomb [facility] Course: Chief Complaint: Altered mentation Patient was seen in the ER. This is a 64-year-old patient follows with visiting physician Dr. Stringer. History is obtained by the daughter at the bedside. Patient had February of this year had a stroke. Was admitted to an outside hospital for about 3 weeks. Patient is putting much on the left side including arm and leg has minimal movement. Patient is able to feed himself. Able to communicate. Patient also has a baseline some nasolabial flattening on the left side of the face. Patient is a resident of [facility]. Patient is able to stand and needs private. At baseline. Patient not able to sleep properly hence was is given Seroquel. That was discontinued 2 days ago. Patient was put on Xanax. Patient was noticed to have altered mentation. Was mumbling his words. But patient is able to answer simple question the ER when I saw him. According to the daughter patient had looks like improved to his baseline. No other ramy rological deficit was seen or reported by the daughter. August 25: Patient overflowing the ER. Seen by speech therapist. On chopped diet. [place] thick liquids. Assisted feeding. Spoke to the nurse. Patient able to tolerate his diet. CT angio of the neck showed complete occlusion of the right internal carotid artery. No intervention per vascular. Await input from neurology. Patient able to hold a conversation. Note blood pressure was noted to be higher as patient not able to take his medications. Now he can have at that he is tolerating a diet. August 26: Sitting up. Eating well. Spoke to speech therapist. Ann-diet has been advanced. Pending MRI of the brain. Speech is fairly good now. Blood pressure well-controlled. August 27: Sitting up. Comfortable. Oral intake fair. MRI of the brain results came back this evening. Reviewed with Dr. Brooks from neurology. Some milagro-infarct extension. Aspirin is being added. Spoke to nurse Padmini. No wheelchair van available after 5 PM. Patient will be discharged tomorrow August 28: Overnight patient was a bit confused. Daughter is at bedside. Did discuss the MRI results with her. She did confirm that patient has left-sided visual inattention from prior stroke. Confirmed at the bedside today. Patient is already on aspirin and Brilinta. Eating fairly well. Discussed with the daughter. Will cut back baclofen to 5 mg 3 times daily. Patient home dose of clozapine is being resumed. Patient has no new focal weakness. CT scan brain done today. Shows no changes. August 29: Patient did not start her Clozaril yesterday. At pharmacy had to do some formalities. Spoke to pharmacist this morning. Resume the same. Patient having some hallucinations. Will see how patient does with the Clozaril. Per neurology no further input. August 30: Resumed on home dose of Clozaril yesterday. Patient's mood is more controlled today. Eating well. Some underlying occasional delirium. But patient is less hyperactive today. [facility] pharmacist called me about prescription of Clozaril. I did inform that I have continue the medication from home. And patient is doing better on the same. How this is prescribed outpatient through his family doctor this can be followed up with the same. I did ask pharmacist to call the pharmacy where patient's ECF is going to update him and closer monitoring of the drug as medications. Discussion and discharge planning more than 35 minutes Physical examination: VITAL SIGNS: 97.6, 72, 18, 118 x 79, 93% room air GENERAL: Reclining in bed. Eating his lunch. EYES: Pupils equal. Conjunctiva irene l. HEENT: External appearance of nose and ears normal, oral cavity grossly normal. NECK: JVD not raised; masses not palpable. HEART: First and second heart sounds are normal; no edema. LUNGS: Respiratory rate normal; clear to auscultation. ABDOMEN: Soft, nontender, liver spleen not palpable, no masses palpable. PSYCH: Does answer some questions. Sometimes hyperactive MUSCULOSKELETAL:No Clubbing/cyanosis;muscles-grossly intact NEUROLOGICAL: Speaking fair sentences. . Some flattening of the left nasolabial fold. Power left arm and leg 3/5.. Left-sided visual inattention. INVESTIGATIONS, reviewed in the clinical context: MRI brain [August 27] old infarct left parietal occipital and temporal lobes. Some milagro-infarct acute to subacute ischemic change may be present in the occipital area. 2D echocardiogram: EF 55 to 60%. EEG: Some evidence of mild encephalopathy. No epileptiform activity. LDL 39.5 CT angio of the brain and neck: Complete occlusion of the proximal right ICA August 24, 2024: White count 6.9 hemoglobin 15.9 platelets 269 sodium 141 potassium 3.5 creatinine 0.76 EKG tracing personally reviewed by me-normal sinus rhythm. CT scans of brain: Encephalomalacia involving the right parietal temporal occipital lobes from prior insult. Remote lacunar infarct in the left basal ganglia. White matter changes. Chest x-ray film personally reviewed by me-cardiomegaly. Carotid Doppler no flow identified within the right internal ArteryShows Assessment plan: -Acute extension of ischemic stroke in the occipital region, confirmed with MRI. EEG,-negative for epileptiform activity Aspirin added. Continue Brilinta Seen by OT PT speech Repeat CT scan [August 28]-unchanged -Increased agitation overnight... Home dose of Clozapine-restarted. To be monitored outpatient per guidelines -Chronic left hemiparesis with left facial weakness, from stroke in February 2024. Was on Brilinta. 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 Valdes. Not for any further surgical intervention. Medical management -GERD Prilosec -Chronic constipation Laxatives -Mild dysphagia per speech therapy Following improved. -Chronic medical debility secondary to prior stroke Baseline only able to stand and pivot with help. Maximum assist -Cognitive impairment due to underlying stroke -Full code -Public guardian: Jacey Rogers. [facility] Past Medical History Past Medical History: GERD/Reflux, Hyperlipidemia, Hypertension History of Any Multi-Drug Resistant Organisms: None Reported Past Surgical History: No Surgical Hx Reported Additional Past Surgical History / Comment(s): left shoulder surgery Past Anesthesia/Blood Transfusion Reactions: No Reported Reaction Past Psychological History: No Psychological Hx Reported Past Alcohol Use History: None Reported, Rare Past Drug Use History: None Reported Plan - Discharge Summary Discharge Rx Participant: Yes New Discharge Prescriptions: New Aspirin 81 mg PO DAILY #30 tab Losartan [Cozaar] 50 mg PO HS #30 tab Baclofen 5 mg PO Q8H #1 tablet Continue Atorvastatin [Lipitor] 80 mg PO HS@1900 Bismuth Subsalicylate [Pepto-Bismol] 524 mg PO Q30M PRN MDD 240ML PRN Reason: Gi Upset bisacodyL [Dulcolax] 10 mg RECTAL DAILY PRN PRN Reason: Constipation Acetaminophen Tab [Tylenol] 650 mg PO Q4H PRN MDD 3 GRAMS PRN Reason: Pain Or Fever > 100.5 cloZAPine [Clozaril] 25 mg PO BID@0700,1600 Ticagrelor [Brilinta] 90 mg PO BID@0700,1900 LORazepam [Ativan] 1 mg PO TID PRN #9 tab PRN Reason: Anxiety polyethylene glycoL 3350 [Miralax] 17 gm PO DAILY PRN PRN Reason: Constipation Magnesium Hydroxide [Milk of Magnesia] 2,400 mg PO DAILY PRN PRN Reason: 3 DAYS NO BM Maxtussin 200mg/10ml 200 mg PO BID PRN PRN Reason: Cough traZODone HCL [Desyrel] 50 mg PO HS@1900 Omeprazole [PriLOSEC] 20 mg PO AC-SUPPER@1600 Gabapentin [Neurontin] 100 mg PO TID@0700,1400,1900 Discontinued HYDROcodone/APAP 5-325MG [[place] 5-325] 1 tab PO Q6HR PRN PRN Reason: Pain Baclofen [Lioresal] 10 mg PO TID@0700,1400,1900 Docusate [Colace] 100 mg PO DAILY PRN PRN Reason: Constipation Tylenol Cold/Flu Severe 2 cap PO Q4H PRN MDD 10 CAPS PRN Reason: COLD/FLU SYMPTOMS Discharge Medication List Acetaminophen Tab [Tylenol] 650 mg PO Q4H PRN MDD 3 GRAMS 08/24/24 [History] Atorvastatin [Lipitor] 80 mg PO HS@1900 08/24/24 [History] Bismuth Subsalicylate [Pepto-Bismol] 524 mg PO Q30M PRN MDD 240ML 08/24/24 [History] Gabapentin [Neurontin] 100 mg PO TID@0700,1400,1900 08/24/24 [History] Magnesium Hydroxide [Milk of Magnesia] 2,400 mg PO DAILY PRN 08/24/24 [History] Maxtussin 200mg/10ml 200 mg PO BID PRN 08/24/24 [History] Omeprazole [PriLOSEC] 20 mg PO AC-SUPPER@1600 08/24/24 [History] Ticagrelor [Brilinta] 90 mg PO BID@0700,1900 08/24/24 [History] bisacodyL [Dulcolax] 10 mg RECTAL DAILY PRN 08/24/24 [History] cloZAPine [Clozaril] 25 mg PO BID@0700,1600 08/24/24 [History] polyethylene glycoL 3350 [Miralax] 17 gm PO DAILY PRN 08/24/24 [History] traZODone HCL [Desyrel] 50 mg PO HS@1900 08/24/24 [History] Aspirin 81 mg PO DAILY #30 tab 08/27/24 [Rx] Losartan [Cozaar] 50 mg PO HS #30 tab 08/27/24 [Rx] Baclofen 5 mg PO Q8H #1 tablet 08/30/24 [Rx] LORazepam [Ativan] 1 mg PO TID PRN #9 tab 08/30/24 [Rx] Follow up Appointment(s)/Referral(s): Colton Hurtado MD [REFERRING] - 1 Week (Please call to schedule appointment) Holger Lipscomb MD [Primary Care Provider] - 1-2 days (Please call to schedule appointment) Discharge Disposition: TRANSFER TO SNF/ECF
== END 2024-08-30 14:48 | DRG 65 ==
LOC: EEVIPCON 11:48 → EC 11:48 → 3SCARD 15:39
PROVIDERS: ADMIT Hospitalist; ATTEND Hospitalist
DX: I63.9 Cerebral infarction, unspecified (principal); I69.354 Hemiplegia and hemiparesis following cerebral infarction affecting left non-dominant side; I65.21 Occlusion and stenosis of right carotid artery; H53.8 Other visual disturbances; R41.89 Other symptoms and signs involving cognitive functions and awareness; R47.81 Slurred speech; R29.810 Facial weakness; E78.5 Hyperlipidemia, unspecified; F41.9 Anxiety disorder, unspecified; I10 Essential (primary) hypertension; R29.710 NIHSS score 10; K21.9 Gastro-esophageal reflux disease without esophagitis; K59.09 Other constipation; Z79.02 Long term (current) use of antithrombotics/antiplatelets; Z79.899 Other long term (current) drug therapy; Z79.82 Long term (current) use of aspirin; Z87.891 Personal history of nicotine dependence; Z82.5 Family history of asthma and other chronic lower respiratory diseases
CPT/HCPCS: 36415; 70450; 70496; 70498; 70553; 71046; 80053; 80061; 83036; 83605; 83735; 85025; 85610; 85730; 93005; 93306; 93880; 95816; 96360; 96361; 99285

== ENCOUNTER 2025-01-16 08:20 | Emergency (ER) | payer MEDICARE ==
--- NOTE | 2025-01-16 08:50 | ED ---
General Adult HPI - General Chief complaint: Altered Mental Status Stated complaint: anxiety Time Seen by Provider: 01/16/25 08:22 Source: EMS Mode of arrival: EMS - History of Present Illness Initial comments: Dictation was produced using [employer] dictation software. please excuse any grammatical, word or spelling errors. Chief Complaint: 64-year-old male presents with psychiatric evaluation History of Present Illness: Patient 64-year-old male [facility]. Patient allegedly had psychiatric medications changed recently. He is being managed outpatient by outpatient psychiatrist. Patient still continued to be aggressive despite changes in medication. Plan was for patient to be transferred to the ER for psych evaluation. 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 Those systems with pertinent positive or negative responses have been documented in the HPI. All other systems are other negative and/or noncontributory. - Related Data Home Medications Medication Instructions Recorded Confirmed Acetaminophen Tab [Tylenol] 650 mg PO Q4H PRN MDD 3 GRAMS 08/24/24 08/24/24 Atorvastatin [Lipitor] 80 mg PO HS@1900 08/24/24 08/24/24 Bismuth Subsalicylate 524 mg PO Q30M PRN MDD 240ML 08/24/24 08/24/24 [Pepto-Bismol] Gabapentin [Neurontin] 100 mg PO TID@0700,1400,1900 08/24/24 08/24/24 Magnesium Hydroxide [Milk of 2,400 mg PO DAILY PRN 08/24/24 08/24/24 Magnesia] Maxtussin 200mg/10ml 200 mg PO BID PRN 08/24/24 08/24/24 Omeprazole [PriLOSEC] 20 mg PO AC-SUPPER@1600 08/24/24 08/24/24 Ticagrelor [Brilinta] 90 mg PO BID@0700,1900 08/24/24 08/24/24 bisacodyL [Dulcolax] 10 mg RECTAL DAILY PRN 08/24/24 08/24/24 cloZAPine [Clozaril] 25 mg PO BID@0700,1600 08/24/24 08/24/24 polyethylene glycoL 3350 [Miralax] 17 gm PO DAILY PRN 08/24/24 08/24/24 traZODone HCL [Desyrel] 50 mg PO HS@1900 08/24/24 08/24/24 Previous Rx's Medication Instructions Recorded Aspirin 81 mg PO DAILY #30 tab 08/27/24 Losartan [Cozaar] 50 mg PO HS #30 tab 08/27/24 Baclofen 5 mg PO Q8H #1 tablet 08/30/24 LORazepam [Ativan] 1 mg PO TID PRN #9 tab 08/30/24 Allergies Allergy/AdvReac Type Severity Reaction Status Date / Time No Known Allergies Allergy Verified 01/16/25 08:25 Review of Systems ROS Statement: Those systems with pertinent positive or pertinent negative responses have been documented in the HPI. ROS Other: All systems not noted in ROS Statement are negative. 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 History of Any Multi-Drug Resistant Organisms: None Reported Past Surgical History: No Surgical Hx Reported Additional Past Surgical History / Comment(s): left shoulder surgery Past Anesthesia/Blood Transfusion Reactions: No Reported Reaction Past Psychological History: No Psychological Hx Reported Past Alcohol Use History: None Reported, Rare Past Drug Use History: None Reported - Past Family History Mother Family Medical History: Cancer Additional Family Medical History / Comment(s): unknown type of cancer Father Family Medical History: COPD General Exam - General Exam Comments Initial Comments: PHYSICAL EXAM: General Impression: Alert and oriented x3, not in acute distress HEENT: Normocephalic atraumatic, extra-ocular movements intact, pupils equal and reactive to light bilaterally, mucous membranes moist. Cardiovascular: Heart regular rate and rhythm Chest: Able to complete full sentences, no retractions, no tachypnea Abdomen: abdomen soft, non-tender, non-distended, no organomegaly Musculoskeletal: Pulses present and equal in all extremities, no peripheral edema Motor: no focal deficits noted Neurological: CN II-XII grossly intact, no focal motor or sensory deficits noted Skin: Intact with no visualized rashes Psych: Normal affect and mood Course Vital Signs 01/16/25 08:25 Temperature 98.6 F Pulse Rate 70 Respiratory 16 Rate Blood Pressure 99/52 O2 Sat by Pulse 96 Oximetry EKG Findings - EKG Comments: EKG Findings:: My EKG interpretation: Ventricular rate 56, sinus bradycardia,. 157, QRS 104, QTc 415. No OH prolongation, no QTC prolongation, no ST or T-wave changes noted. Overall, this EKG is unremarkable Medical Decision Making - Medical Decision Making Was pt. sent in by a medical professional or institution (, PA, TELECOM NETWORK MANAGER, urgent care, hospital, or senior living...) When possible be specific @ -No Did you speak to anyone other than the patient for history (EMS, parent, family, police, friend...)? What history was obtained from this source @ -No Did you review nursing and triage notes (agree or disagree)? Why? @ -I reviewed and agree with nursing and triage notes Were old charts reviewed (outside hosp., previous admission, EMS record, old EKG, old radiological studies, urgent care reports/EKG's, senior living records)? Report findings @ -No old charts were reviewed Differential Diagnosis (chest pain, altered mental status, abdominal pain women, abdominal pain men, vaginal bleeding, musculoskeletal, weakness, fever, dyspnea, syncope, headache, dizziness, GI bleed, back pain, seizure, CVA, palpatations, mental health)? @ -Differential Mental Health: Depression, anxiety, bipolar, psychosis, schizophrenia, borderline personality, situational depression, adjustment disorder, behavioral disorder, brain tumor, malingering, substance abuse, encephalopathy, medication reaction, dementia, hypothyroidism, degenerative neurologic disorder, lupus.... This is not meant to be all-inclusive list EKG interpreted by me (3pts min.). @ -See above X-rays interpreted by me (1pt min.). @ -None done CT interpreted by me (1pt min.). @ -None done U/S interpreted by me (1pt. min.). @ -None done What testing was considered but not performed or refused? (CT, X-rays, U/S, labs)? Why? @ -None What meds were considered but not given or refused? Why? @ -None Was smoking cessation discussed for >3mins.? @ -No Were there social determinants of health that impacted care today? How? (Homelessness, low income, unemployed, alcoholism, drug addiction, transportat ion, low edu. Level, literacy, decrease access to med. care, [facility], rehab)? @ -No Was there de-escalation of care discussed even if they declined (Discuss DNR or withdrawal of care, Hospice)? DNR status @ -No What co-morbidities impacted this encounter? (DM, HTN, Smoking, COPD, CAD, Cancer, CVA, ARF, Chemo, Hep., AIDS, mental health diagnosis, sleep apnea, morbid obesity)? @ -None Was patient admitted / discharged? Hospital course, mention meds given and route, prescriptions, significant lab abnormalities, going to OR and other pertinent info. @ -64-year-old male [facility] from [facility] for [facility]. Patient well-appearing. Apparently he has been displaying aggressive behavior. Vital signs stable. Laboratory evaluation is unremarkable. Patient cleared for EPS. Did you discuss the management of the patient with other professionals (professionals i.e. , PA, TELECOM NETWORK MANAGER, lab, RT, psych nurse, oncology social work, door hanger, teacher, aoc director combat plans officer, human services case manager)? Give summary @ -Patient evaluated by EPS recommended discharge with safety plan. Was critical care preformed (if so, how long)? @ -No Undiagnosed new problem with uncertain prognosis? @ -No Drug Therapy requiring intensive monitoring for toxicity (Heparin, Nitro, Insulin, Cardizem)? @ -No Were any procedures done? @ -No Diagnosis/symptom? Acute, or Chronic, or Acute on Chronic? Uncomplicated (without systemic symptoms) or Complicated (systemic symptoms)? @ -Aggressive behavior Side effects of treatment? @ -No Exacerbation, Progression, or Severe Exacerbation? @ -No Poses a threat to life or bodily function? How? (Chest pain, [place], [place], pneumonia, PE, COPD, DKA, ARF, appy, cholecystitis, CVA, Diverticulitis, Homicidal, Suicidal, threat to staff... and all critical care pts) @ -No - Lab Data Result diagrams: 01/16/25 09:09 01/16/25 09:09 Lab Results 01/16/25 01/16/25 01/16/25 Range/Units 09:09 09:09 09:56 WBC 6.6 (3.8-10.6) k/uL RBC 4.17 L (4.30-5.90) m/uL Hgb 11.3 L (13.0-17.5) gm/dL Hct 34.9 L (39.0-53.0) % MCV 83.6 (80.0-100.0) fL MCH 27.2 (25.0-35.0) pg MCHC 32.5 (31.0-37.0) g/dL RDW 16.3 H (11.5-15.5) % Plt Count 230 (150-450) k/uL MPV 7.7 Neutrophils % 50 % Lymphocytes % 41 % Monocytes % 6 % Eosinophils % 2 % Basophils % 1 % Neutrophils # 3.3 (1.3-7.7) k/uL Lymphocytes # 2.7 (1.0-4.8) k/uL Monocytes # 0.4 (0-1.0) k/uL Eosinophils # 0.2 (0-0.7) k/uL Basophils # 0.0 (0-0.2) k/uL Anisocytosis Slight Sodium 139 (137-145) mmol/L Potassium 3.6 (3.5-5.1) mmol/L Chloride 105 (98-107) mmol/L Carbon Dioxide 28 (22-30) mmol/L Anion Gap 6 mmol/L BUN 18 (9-20) mg/dL Creatinine 0.74 (0.66-1.25) mg/dL Est GFR (CKD-EPI)AfAm >90 (>60 ml/min/1.73 sqM) Est GFR (CKD-EPI)NonAf >90 (>60 ml/min/1.73 sqM) Glucose 95 (74-99) mg/dL Calcium 9.3 (8.4-10.2) mg/dL Urine Opiates Screen Not Detected (NotDetected) Ur Oxycodone Screen Not Detected (NotDetected) Urine Methadone Screen Not Detected (NotDetected) Ur Barbiturates Screen Not Detected (NotDetected) U Tricyclic Antidepress Not Detected (NotDetected) Ur Phencyclidine Scrn Not Detected (NotDetected) Ur Amphetamines Screen Not Detected (NotDetected) U Methamphetamines Scrn Not Detected (NotDetected) U Benzodiazepines Scrn Detected H (NotDetected) Urine Cocaine Screen Not Detected (NotDetected) U Marijuana (THC) Screen Not Detected (NotDetected) Disposition Clinical Impression: Psychiatric complaint Disposition: HOME SELF-CARE Condition: Good Instructions (If sedation given, give patient instructions): Medical Clearance for Psychiatric Care (ED) Is patient prescribed a controlled substance at d/c from ED?: No Referrals: Holger Lipscomb MD [Primary Care Provider] - 1-2 days Time of Disposition: 13:21
[2025-01-16 09:15] LABS: Anisocytosis Slight; Basophils % (A) 1 %; Eosinophils # (A) 0.2 k/uL (0-0.7); Eosinophils % (A) 2 %; HCT 34.9 % (39.0-53.0); HGB 11.3 gm/dL (13.0-17.5); Lymphocytes # (A) 2.7 k/uL (1.0-4.8); Lymphocytes % (A) 41 %; MCH 27.2 pg (25.0-35.0); MCHC 32.5 g/dL (31.0-37.0); MCV 83.6 fL (80.0-100.0); Mean Platelet Volume 7.7; Monocytes # (A) 0.4 k/uL (0-1.0); Monocytes % (A) 6 %; Neutrophils # (A) 3.3 k/uL (1.3-7.7); Neutrophils % (A) 50 %; Platelet Count 230 k/uL (150-450); RBC 4.17 m/uL (4.30-5.90); RDW 16.3 % (11.5-15.5); WBC 6.6 k/uL (3.8-10.6)
[2025-01-16 09:28] LABS: African American GFR (CKD) >90 (>60 ml/min/1.73 sqM); Anion Gap 6 mmol/L; Blood Urea Nitrogen 18 mg/dL (9-20); Calcium 9.3 mg/dL (8.4-10.2); Carbon Dioxide 28 mmol/L (22-30); Chloride 105 mmol/L (98-107); Glucose 95 mg/dL (74-99); Non-African American GFR(CKD) >90 (>60 ml/min/1.73 sqM); Potassium 3.6 mmol/L (3.5-5.1); Sodium 139 mmol/L (137-145)
[2025-01-16 10:13] LABS: Amphetamine Screen,Urine Not Detected (NotDetected); Barbiturate Screen,Urine Not Detected (NotDetected); Benzodiazepines Screen,Urine Detected (NotDetected); Cocaine Screen,Urine Not Detected (NotDetected); Methadone Screen, Urine Not Detected (NotDetected); Opiate Screen,Urine Not Detected (NotDetected); Phencyclidine Screen,Urine Not Detected (NotDetected); Tricyclic Antidepressant,Urine Not Detected (NotDetected); Urn Cannabinoid Scrn Not Detected (NotDetected)
[2025-01-16 10:14] LABS: Oxycodone Screen, Urine Not Detected (NotDetected)
[2025-01-16 15:49] VITALS: BP 109/57; PULSE 69; RESP 18; TEMP 98.4
== END 2025-01-16 15:49 | disposition home or self-care (01) ==
LOC: EC 08:20
DX: R45.6 Violent behavior (principal); R00.1 Bradycardia, unspecified
CPT/HCPCS: 36415; 80048; 80306; 82075; 85025; 93005; 99285